=== PATIENT | male | born 1955 | race Caucasian/White ===

== ENCOUNTER 2024-10-28 19:24 | Inpatient (IN) ==
[2024-10-28 20:27] LABS: Alanine Aminotransferase 23 U/L (7-52); Albumin Globulin Ratio 1.2 (0.9-2); Albumin Level 4.4 gm/dl (3.4-5.0); Alkaline Phosphatase 92 U/L (34-104); Anion Gap 8 (3-11); BUN Creatinine Ratio 22.1 (10-20); Bilirubin,Total 0.6 mg/dl (0.2-1.0); Blood Urea Nitrogen 38 mg/dl (6-23); Calcium 9.6 mg/dl (8.6-10.3); Carbon Dioxide 24 mmol/L (21-32); Chloride 105 mmol/L (98-107); D Dimer 260 ug/L FEU (0-500); Globulin 3.7 gm/dl (2.5-4.0); Glucose 164 mg/dl (70-99(Fasting)); Lipase 46 U/L (11-82); Sodium 137 mmol/L (136-145); Total Protein 8.1 gm/dl (6.0-8.3); Troponin I High Sensitivity 28.3 pg/ml (0-20)
[2024-10-28 20:33] LABS: Hematocrit (blood only) 38.5 % (42.0-52.0); Mean Corpuscular Hemoglobin 32.7 pg (25.0-34.0); Mean Corpuscular Hgb Conc 36.4 g/dL (32.0-36.0); Platelet Count 221 K/uL (130-400); RDW Standard Deviation 42.1 fL (36.4-46.3); Red Blood Count 4.28 M/uL (4.70-6.10); White Blood Count 10.31 K/ul (4.8-10.8)
[2024-10-28 20:34] LABS: Eosinophils # (auto) 0.59 K/uL (0.00-0.50); Eosinophils % (auto) 5.7 %; Immature Granulocytes # (auto) 0.04 K/uL (0.01-0.20); Immature Granulocytes % (auto) 0.4 %; Lymphocytes # (auto) 2.48 K/uL (1.20-3.40); Lymphocytes % (auto) 24.1 %; Monocytes # (auto) 0.92 K/uL (0.11-0.59); Monocytes % (auto) 8.9 %; Neutrophils # (auto) 6.18 K/uL (1.40-6.50); Neutrophils % (auto) 59.9 %
[2024-10-28 20:57] LABS: Influenza A virus by PCR Negative (Neg); Influenza B virus by PCR Negative (Neg); RSV by PCR Negative (Neg); SARS CoV2 RNA(COVID-19) Ceph NEGATIVE (Negative)
[2024-10-28 21:07] LABS: Appearance Urine Clear (Clear); Bacteria Urine Automated None Seen (None Seen); Bilirubin Urine Negative (Negative); Blood Urine Negative (Negative); Cast Urine Automated 0-2 /lpf (0-2); Color Urine Yellow; Epithelial Cell Urine Auto 0-2 /hpf (0-2); Glucose Urine UA 1+ (Negative); Ketones Urine Negative (Negative); Leukocyte Esterase Urine Negative (Negative); Nitrite Urine Negative (Negative); Protein Urine Trace (Negative); RBC Urine Automated 0-2 /hpf (0-2); Specific Gravity Urine 1.021 (1.000-1.030); Urobilinogen Urine Negative (Negative); WBC Urine Automated 0-5 /hpf (0-5)
[2024-10-28 21:55] LABS: Troponin I High Sensitivity 30.9 pg/ml (0-20)
--- NOTE | 2024-10-28 21:59 | XRay Report ---
Exam(s): XR CXR 1 VIEW EXAM: XR Chest, 1 View CLINICAL HISTORY: Chest pain, nonspecific. TECHNIQUE: Frontal view of the chest. COMPARISON: No relevant prior studies available. FINDINGS: Lungs: Hypoventilation with bilateral basilar atelectasis/vascular crowding. No CHF. Pleural space: No pleural effusion. No pneumothorax. Heart: No cardiomegaly. Cardiac loop recorder Mediastinum: Unremarkable. Normal mediastinal contour. Bones/joints: Unremarkable. No acute fracture. IMPRESSION: Hypoventilation with atelectasis. No definite CHF. Electronically signed by: Aldo Garcia M.D. 10/28/24 21:58 PM
[2024-10-28] MEDS: FUROSEMIDE 40 MG/4 ML VIAL IV ONE (22:19)
[2024-10-28] MEDS: ALBUT/IPRATROP 3MG/0.5MG NEB 3 ML VIAL NEB STA (22:22)
--- NOTE | 2024-10-28 22:50 | History & Physical Report ---
Date of Service October 28, 2024 Assessment & Plan (1) SOB (shortness of breath): Plan: 68-year-old male with past med history significant for hypertension, sleep apnea, CAD status post multiple stents as per patient, congestive heart failure, history of CVA, diabetes, hyperlipidemia, hypertension, chronic kidney disease, hypothyroidism, cataracts, comes from longterm with shortness of breath. Patient says since last 2 to 3 weeks is having cough bringing up whitish to yellowish phlegm and progressively getting shortness of breath . Currently walking short distance making him short of breath. No orthopnea. But in the nighttime he gets up gasping for breath. Complains of some chest soreness probably from his coughing. He feels his lungs are hurting. He thinks he is coughing up fluid. Appetite is okay. Sometimes when he drinks liquids he is coughing more. But swallowing solid food okay. Denies any headache. Sometimes feeling dizzy. Vision is not great in right eye because of cataracts. Currently no runny nose. Has some sore throat. Denies fevers. Currently no nausea. No abdominal pain. Constipated. Denies any blood in the stools or black stools. Micturating okay. Hemodynamics are okay. Patient says he is mostly wheelchair-bound. Shortness of breath Possible acute CHF D-dimer negative BNP [address] chest Received IV Lasix 40 mg in the ER Will continue IV Lasix 40 mg twice daily Daily weights and I's and O's Telemetry Echo Cardiac consult in a.m. Mild elevation troponin Mostly demand ischemia Will follow serial enzymes and echo History of CAD status post stents as per patient Continue aspirin, Brilinta, statin and beta-ekta and Imdur History of CHF as per records On Bumex which will be held while getting IV Lasix Will follow echo History of CVA On aspirin and Brilinta and statin Hypertension On Coreg, Imdur, lisinopril and diuretics Will monitor Hyperlipidemia On statin CKD We do not have baseline creatinine Presents with creatinine of 1.7 Will follow labs Diabetes Sliding scale Will monitor Follow HbA1c levels Hypothyroidism On Synthyroid DVT prophylaxis Heparin subcu Disposition Telemetry Full code History of Present Illness Chief Complaint: Shortness of breath Primary Care Provider: CORINE Singh 68-year-old male with past med history significant for hypertension, sleep apnea, CAD status post multiple stents as per patient, congestive heart failure, history of CVA, diabetes, hyperlipidemia, hypertension, chronic kidney disease, hypothyroidism, cataracts, comes from longterm with shortness of breath. Patient says since last 2 to 3 weeks is having cough bringing up whitish to yellowish phlegm and progressively getting shortness of breath . Currently walking short distance making him short of breath. No orthopnea. But in the nighttime he gets up gasping for breath. Complains of some chest soreness probably from his coughing. He feels his lungs are hurting. He thinks he is coughing up fluid. Appetite is okay. Sometimes when he drinks liquids he is coughing more. But swallowing solid food okay. Denies any headache. Sometimes feeling dizzy. Vision is not great in right eye because of cataracts. Currently no runny nose. Has some sore throat. Denies fevers. Currently no nausea. No abdominal pain. Constipated. Denies any blood in the stools or black stools. Micturating okay. Hemodynamics are okay. Patient says he is mostly wheelchair-bound. Past medical history. As mentioned above Past surgical history. Cardiac cath. Hernia repair. Social history. Denies smoking. Denies alcohol use. Denies drug use. Family history. Father had CABG. Allergies Allergy/AdvReac Type Severity Reaction Status Date / Time No Known Allergies Allergy Unverified 10/29/24 00:27 Home Medications Medication Instructions Recorded Confirmed Type aspirin 81 mg tablet,delayed 81 mg PO DAILY 10/28/24 10/28/24 History release atorvastatin 80 mg tablet 80 mg PO DAILY 10/28/24 10/28/24 History bumetanide 1 mg tablet 1 mg PO BID 10/28/24 10/28/24 History carvedilol 3.125 mg tablet (Coreg) 3.125 mg PO BID 10/28/24 10/28/24 History cholecalciferol (vitamin D3) 25 25 mcg PO DAILY 10/28/24 10/28/24 History mcg (1,000 unit) capsule (Vitamin D3) insulin regular human 100 unit/mL 1 sliding scale dose subcut 10/28/24 10/28/24 History (3 mL) subcutaneous pen (Novolin R USEASDIRECTD FlexPen) levothyroxine 100 mcg tablet 100 mcg PO DAILY 10/28/24 10/28/24 History lisinopril 30 mg tablet 30 mg PO DAILY 10/28/24 10/28/24 History ticagrelor 90 mg tablet (Brilinta) 90 mg PO BID 10/28/24 10/28/24 History isosorbide mononitrate 30 mg 15 mg PO DAILY 10/29/24 10/29/24 History tablet,extended release 24 hr Past Med/Surg History Problem List (Updated 10/28/24 @ 23:36 by Giovanna Pruett PA-C) Atypical chest pain (Acute) SOB (shortness of breath) Social History Smoking Status: Never smoker Second Hand Exposure: No; Do You Dip or Chew Tobacco: No; Hx Alcohol Use: No Hx Substance Use: No Preferred Language: Thai Communication Ability: Effective 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 ENT- oropharynx clear Neck- supple, no JVD. Lungs- clear to auscultation mild bibasilar crackles, no wheezing Heart- regular rate and rhythm; no murmur, no gallop. Abdomen- normal bowel sounds, soft, nontender, no distension Extremities- trace pretibial edema present, no erythema seen Neuro- alert, oriented PERRL, no facial palsy; no dysarthria; moves extremities Results & Data Results & Data Vital Signs (Past 12 Hours) Vital Signs Temp Pulse Pulse Resp BP BP Pulse Ox 10/28/24 20:52 68 10/28/24 20:39 56 L 20 97 10/28/24 20:39 56 L 19 177/106 H 97 10/28/24 20:39 97 10/28/24 19:30 37.2 C 60 19 179/92 H 96 O2 Del Method 10/28/24 20:52 10/28/24 20:39 Room Air 10/28/24 20:39 Room Air 10/28/24 20:39 Room Air 10/28/24 19:30 Room Air Diagnostic Findings Laboratory Results WBC 10.31 K/ul (4.8-10.8) 10/28/24 19:48 RBC 4.28 M/uL (4.70-6.10) L 10/28/24 19:48 Hgb 14.0 g/dl (14.0-18.0) 10/28/24 19:48 Hct 38.5 % (42.0-52.0) L 10/28/24 19:48 MCV 90.0 fL (80.0-100.0) 10/28/24 19:48 MCH 32.7 pg (25.0-34.0) 10/28/24 19:48 MCHC 36.4 g/dL (32.0-36.0) H 10/28/24 19:48 RDW Std Deviation 42.1 fL (36.4-46.3) 10/28/24 19:48 RDW Coeff of Carisa 13.0 % (11.5-14.5) 10/28/24 19:48 Plt Count 221 K/uL (130-400) 10/28/24 19:48 MPV 11.0 fL (9.4-12.4) 10/28/24 19:48 Immature Gran % (Auto) 0.4 % 10/28/24 19:48 Neut % (Auto) 59.9 % 10/28/24 19:48 Lymph % (Auto) 24.1 % 10/28/24 19:48 [place] % (Auto) 8.9 % 10/28/24 19:48 Eos % (Auto) 5.7 % 10/28/24 19:48 Baso % (Auto) 1.0 % 10/28/24 19:48 Neut # (Auto) 6.18 K/uL (1.40-6.50) 10/28/24 19:48 Lymph # (Auto) 2.48 K/uL (1.20-3.40) 10/28/24 19:48 [place] # (Auto) 0.92 K/uL (0.11-0.59) H 10/28/24 19:48 Eos # (Auto) 0.59 K/uL (0.00-0.50) H 10/28/24 19:48 Baso # (Auto) 0.10 K/uL (0.00-0.20) 10/28/24 19:48 Immature Gran # (Auto) 0.04 K/uL (0.01-0.20) 10/28/24 19:48 D-Dimer 260 ug/L FEU (0-500) 10/28/24 19:48 Sodium 137 mmol/L (136-145) 10/28/24 19:48 Potassium 4.0 mmol/L (3.5-5.1) 10/28/24 21:00 Chloride 105 mmol/L (98-107) 10/28/24 19:48 Carbon Dioxide 24 mmol/L (21-32) 10/28/24 19:48 Anion Gap 8 (3-11) 10/28/24 19:48 BUN 38 mg/dl (6-23) H 10/28/24 19:48 Creatinine 1.72 mg/dl (0.6-1.4) H 10/28/24 19:48 Est Cr Clr Drug Dosing Not Reportable 10/28/24 19:48 eGFR 42.76 10/28/24 19:48 BUN/Creatinine Ratio 22.1 (10-20) H 10/28/24 19:48 Glucose 164 mg/dl (70-99(Fasting)) H 10/28/24 19:48 Calcium 9.6 mg/dl (8.6-10.3) 10/28/24 19:48 Total Bilirubin 0.6 mg/dl (0.2-1.0) 10/28/24 19:48 AST 18 U/L (13-39) 10/28/24 21:00 ALT 23 U/L (7-52) 10/28/24 19:48 Alkaline Phosphatase 92 U/L (34-104) 10/28/24 19:48 Troponin I High Sens 30.9 pg/ml (0-20) H 10/28/24 21:00 B-Natriuretic Peptide 102 pg/ml (0-100) H 10/28/24 19:48 Total Protein 8.1 gm/dl (6.0-8.3) 10/28/24 19:48 Albumin 4.4 gm/dl (3.4-5.0) 10/28/24 19:48 Globulin 3.7 gm/dl (2.5-4.0) 10/28/24 19:48 Albumin/Globulin Ratio 1.2 (0.9-2) 10/28/24 19:48 Lipase 46 U/L (11-82) 10/28/24 19:48 Urine Color Yellow 10/28/24 20:43 Urine Appearance Clear (Clear) 10/28/24 20:43 Urine pH 5.0 (4.5-7.5) 10/28/24 20:43 Ur Specific [place] 1.021 (1.000-1.030) 10/28/24 20:43 Urine Protein Trace (Negative) H 10/28/24 20:43 Urine Glucose (UA) 1+ (Negative) H 10/28/24 20:43 Urine Ketones Negative (Negative) 10/28/24 20:43 Urine Blood Negative (Negative) 10/28/24 20:43 Urine Nitrite Negative (Negative) 10/28/24 20:43 Urine Bilirubin Negative (Negative) 10/28/24 20:43 Urine Urobilinogen Negative (Negative) 10/28/24 20:43 Ur Leukocyte Esterase Negative (Negative) 10/28/24 20:43 Urine WBC (Auto) 0-5 /hpf (0-5) 10/28/24 20:43 Urine RBC (Auto) 0-2 /hpf (0-2) 10/28/24 20:43 U Hyaline Cast (Auto) 0-2 /lpf (0-2) 10/28/24 20:43 U Epithel Cells (Auto) 0-2 /hpf (0-2) 10/28/24 20:43 Urine Bacteria (Auto) None Seen (None Seen) 10/28/24 20:43 SARS-CoV-2 (PCR) NEGATIVE (Negative) 10/28/24 Unknown Influenza Type A (PCR) Negative (Neg) 10/28/24 Unknown Influenza Type B (PCR) Negative (Neg) 10/28/24 Unknown RSV (RT-PCR) Negative (Neg) 10/28/24 Unknown Impressions Chest X-Ray 10/28/24 19:35 Exam(s): XR CXR 1 VIEW EXAM: XR Chest, 1 View CLINICAL HISTORY: Chest pain, nonspecific. TECHNIQUE: Frontal view of the chest. COMPARISON: No relevant prior studies available. FINDINGS: Lungs: Hypoventilation with bilateral basilar atelectasis/vascular crowding. No CHF. Pleural space: No pleural effusion. No pneumothorax. Heart: No cardiomegaly. Cardiac loop recorder Mediastinum: Unremarkable. Normal mediastinal contour. Bones/joints: Unremarkable. No acute fracture. IMPRESSION: Hypoventilation with atelectasis. No definite CHF. Electronically signed by: Aldo Garcia M.D. 10/28/24 21:58 PM ECG Additional Comments: ECG. Normal sinus rhythm with sinus arrhythmia rate of 61. No acute ST changes seen. Code Status & VTE Plan VTE Prophylaxis Plan VTE Prophylaxis will be ordered: Yes
--- NOTE | 2024-10-28 23:36 | Emergency Department Note ---
History of Present Illness General Chief complaint: Chest Pain Stated complaint: LUNGS FILLING WITH LIQUID Time Seen by Provider: 10/28/24 21:33 History of Present Illness Maximum Pain Intensity: 4 This 68-year-old present with coronary artery disease presents ER complaining of chest pain and shortness of breath that has gotten progressively worse. No known history of heart failure. Patient denies fever, chills, flulike illness, leg pain or swelling. Home Medications Medication Instructions Recorded Confirmed Type Imdur 15 mg PO DAILY 10/28/24 10/28/24 History aspirin 81 mg tablet,delayed 81 mg PO DAILY 10/28/24 10/28/24 History release atorvastatin 80 mg tablet 80 mg PO DAILY 10/28/24 10/28/24 History bumetanide 1 mg tablet 1 mg PO BID 10/28/24 10/28/24 History carvedilol 3.125 mg tablet (Coreg) 3.125 mg PO BID 10/28/24 10/28/24 History cholecalciferol (vitamin D3) 25 25 mcg PO DAILY 10/28/24 10/28/24 History mcg (1,000 unit) capsule (Vitamin D3) insulin regular human 100 unit/mL 1 sliding scale dose subcut 10/28/24 10/28/24 History (3 mL) subcutaneous pen (Novolin R USEASDIRECTD FlexPen) levothyroxine 100 mcg tablet 100 mcg PO DAILY 10/28/24 10/28/24 History lisinopril 30 mg tablet 30 mg PO DAILY 10/28/24 10/28/24 History ticagrelor 90 mg tablet (Brilinta) 90 mg PO BID 10/28/24 10/28/24 History Past Med/Surg History Problem List (Updated 10/28/24 @ 23:36 by Giovanna Pruett PA-C) Atypical chest pain (Acute) SOB (shortness of breath) Social History Smoking Status: Never smoker Feels Safe at Home: Yes Review of Systems A total of 10 systems reviewed and were otherwise negative Physical Exam Vital Signs Vital Signs - 24 hr 10/28/24 19:30 10/28/24 20:39 10/28/24 20:39 Temperature 37.2 C Temperature Source Temporal Artery Scan Pulse Rate 60 Pulse Rate [Apical] 56 L Pulse Rate from SpO2 Sensor Pulse Rhythm Regular Respiratory Rate 19 19 Respiratory Effort / Characteristics Non-Labored Non-Labored Spontaneous Respiratory Depth Normal Normal Respiratory Pattern Regular Blood Pressure 179/92 H Blood Pressure [Right Arm] 177/106 H Blood Pressure Mean 121 Blood Pressure Mean [Right Arm] 129 Pulse Oximetry 96 97 97 Oxygen Delivery Method Room Air Room Air Room Air Sepsis Recent Fever Within 48 Hours No Sepsis New/Unexplained Change in Mental Status N/A Sepsis Action Taken by Nursing No Action Required 10/28/24 20:39 10/28/24 20:52 10/28/24 21:03 Temperature Temperature Source Pulse Rate 56 L 68 55 L Pulse Rate [Apical] Pulse Rate from SpO2 Sensor 54 L Pulse Rhythm Respiratory Rate 20 16 Respiratory Effort / Characteristics Respiratory Depth Respiratory Pattern Blood Pressure 193/95 H Blood Pressure [Right Arm] Blood Pressure Mean 127 Blood Pressure Mean [Right Arm] Pulse Oximetry 97 98 Oxygen Delivery Method Room Air Sepsis Recent Fever Within 48 Hours Sepsis New/Unexplained Change in Mental Status Sepsis Action Taken by Nursing 10/28/24 22:00 10/28/24 22:15 10/28/24 22:33 Temperature Temperature Source Pulse Rate 53 L 50 L Pulse Rate [Apical] Pulse Rate from SpO2 Sensor 55 L 51 L Pulse Rhythm Respiratory Rate 19 19 Respiratory Effort / Characteristics Respiratory Depth Respiratory Pattern Blood Pressure 169/97 H Blood Pressure [Right Arm] Blood Pressure Mean 135 Blood Pressure Mean [Right Arm] Pulse Oximetry 97 100 Oxygen Delivery Method Sepsis Recent Fever Within 48 Hours Sepsis New/Unexplained Change in Mental Status Sepsis Action Taken by Nursing VITALS: Vitals are noted on the nurse's note and reviewed by myself. Vital signs stable. GENERAL: White male, in no acute distress, nondiaphoretic, well-developed well- nourished. SKIN: Capillary reflex less than 2 seconds. HEENT: Normocephalic. PERRLA. EOMI. Nares patent. Mucous membranes moist. Neck is supple without nuchal rigidity. HEART: Regular rate and rhythm LUNGS: Bibasilar rales. No retractions or accessory muscle use. ABDOMEN: Positive bowel sounds x 4. Normal tympanic percussion. Soft, nontender, without masses or organomegaly. Ordaz sign negative. No guarding or rebound tenderness. no CVA tenderness MUSCULOSKELETAL: No gross musculoskeletal defects. NEURO: Patient was alert and oriented to person place and time. No focal neurological deficits. Course Administered Medications Discontinued Medications Albuterol (Albut/Ipratrop 3mg/0.5mg Neb 3 Ml Vial) 3 ml NEB NOW STA; Protocol Stop: 10/28/24 21:49 Last Admin: 10/28/24 22:22 Dose: 3 ml Documented By: CEF Furosemide (Furosemide 40 Mg/4 Ml Vial) 40 mg IV ONE ONE Stop: 10/28/24 21:49 Last Admin: 10/28/24 22:19 Dose: 40 mg Documented By: CEF Medical Decision Making Medical Records Attestation: I reviewed the patient's medical records. Home Medications Current Medication List: was personally reviewed by me Laboratory Data Attestation: I reviewed the patient's lab results. 10/28/24 19:48 10/28/24 21:00 Lab Results 10/28/24 10/28/24 10/28/24 Range/Units 19:48 20:43 21:00 WBC 10.31 (4.8-10.8) K/ul RBC 4.28 L (4.70-6.10) M/uL Hgb 14.0 (14.0-18.0) g/dl Hct 38.5 L (42.0-52.0) % MCV 90.0 (80.0-100.0) fL MCH 32.7 (25.0-34.0) pg MCHC 36.4 H (32.0-36.0) g/dL RDW Std Deviation 42.1 (36.4-46.3) fL RDW Coeff of Carisa 13.0 (11.5-14.5) % Plt Count 221 (130-400) K/uL MPV 11.0 (9.4-12.4) fL Immature Gran % (Auto) 0.4 % Neut % (Auto) 59.9 % Lymph % (Auto) 24.1 % [place]ador % (Auto) 8.9 % Eos % (Auto) 5.7 % Baso % (Auto) 1.0 % Neut # (Auto) 6.18 (1.40-6.50) K/uL Lymph # (Auto) 2.48 (1.20-3.40) K/uL [place] # (Auto) 0.92 H (0.11-0.59) K/uL Eos # (Auto) 0.59 H (0.00-0.50) K/uL Baso # (Auto) 0.10 (0.00-0.20) K/uL Immature Gran # (Auto) 0.04 (0.01-0.20) K/uL D-Dimer 260 (0-500) ug/L FEU Sodium 137 (136-145) mmol/L Potassium TNP 4.0 Chloride 105 (98-107) mmol/L Carbon Dioxide 24 (21-32) mmol/L Anion Gap 8 (3-11) BUN 38 H (6-23) mg/dl Creatinine 1.72 H (0.6-1.4) mg/dl Est Cr Clr Drug Dosing Not Reportable eGFR 42.76 BUN/Creatinine Ratio 22.1 H (10-20) Glucose 164 H (70-99(Fasting)) mg/dl Calcium 9.6 (8.6-10.3) mg/dl Total Bilirubin 0.6 (0.2-1.0) mg/dl AST TNP 18 ALT 23 (7-52) U/L Alkaline Phosphatase 92 (34-104) U/L Troponin I High Sens 28.3 H 30.9 H (0-20) pg/ml B-Natriuretic Peptide 102 H (0-100) pg/ml Total Protein 8.1 (6.0-8.3) gm/dl Albumin 4.4 (3.4-5.0) gm/dl Globulin 3.7 (2.5-4.0) gm/dl Albumin/Globulin Ratio 1.2 (0.9-2) Lipase 46 (11-82) U/L Urine Color Yellow Urine Appearance Clear (Clear) Urine pH 5.0 (4.5-7.5) Ur Specific O'Brien 1.021 (1.000-1.030) Urine Protein Trace H (Negative) Urine Glucose (UA) 1+ H (Negative) Urine Ketones Negative (Negative) Urine Blood Negative (Negative) Urine Nitrite Negative (Negative) Urine Bilirubin Negative (Negative) Urine Urobilinogen Negative (Negative) Ur Leukocyte Esterase Negative (Negative) Urine WBC (Auto) 0-5 (0-5) /hpf Urine RBC (Auto) 0-2 (0-2) /hpf U Hyaline Cast (Auto) 0-2 (0-2) /lpf U Epithel Cells (Auto) 0-2 (0-2) /hpf Urine Bacteria (Auto) None Seen (None Seen) SARS-CoV-2 (PCR) (Negative) Influenza Type A (PCR) (Neg) Influenza Type B (PCR) (Neg) RSV (RT-PCR) (Neg) 10/28/24 Range/Units Unknown WBC (4.8-10.8) K/ul RBC (4.70-6.10) M/uL Hgb (14.0-18.0) g/dl Hct (42.0-52.0) % MCV (80.0-100.0) fL MCH (25.0-34.0) pg MCHC (32.0-36.0) g/dL RDW Std Deviation (36.4-46.3) fL RDW Coeff of Carisa (11.5-14.5) % Plt Count (130-400) K/uL MPV (9.4-12.4) fL Immature Gran % (Auto) % Neut % (Auto) % Lymph % (Auto) % [place] % (Auto) % Eos % (Auto) % Baso % (Auto) % Neut # (Auto) (1.40-6.50) K/uL Lymph # (Auto) (1.20-3.40) K/uL [place] # (Auto) (0.11-0.59) K/uL Eos # (Auto) (0.00-0.50) K/uL Baso # (Auto) (0.00-0.20) K/uL Immature Gran # (Auto) (0.01-0.20) K/uL D-Dimer (0-500) ug/L FEU Sodium (136-145) mmol/L Potassium Chloride (98-107) mmol/L Carbon Dioxide (21-32) mmol/L Anion Gap (3-11) BUN (6-23) mg/dl Creatinine (0.6-1.4) mg/dl Est Cr Clr Drug Dosing eGFR BUN/Creatinine Ratio (10-20) Glucose (70-99(Fasting)) mg/dl Calcium (8.6-10.3) mg/dl Total Bilirubin (0.2-1.0) mg/dl AST ALT (7-52) U/L Alkaline Phosphatase (34-104) U/L Troponin I High Sens (0-20) pg/ml B-Natriuretic Peptide (0-100) pg/ml Total Protein (6.0-8.3) gm/dl Albumin (3.4-5.0) gm/dl Globulin (2.5-4.0) gm/dl Albumin/Globulin Ratio (0.9-2) Lipase (11-82) U/L Urine Color Urine Appearance (Clear) Urine pH (4.5-7.5) Ur Specific O'Brien (1.000-1.030) Urine Protein (Negative) Urine Glucose (UA) (Negative) Urine Ketones (Negative) Urine Blood (Negative) Urine Nitrite (Negative) Urine Bilirubin (Negative) Urine Urobilinogen (Negative) Ur Leukocyte Esterase (Negative) Urine WBC (Auto) (0-5) /hpf Urine RBC (Auto) (0-2) /hpf U Hyaline Cast (Auto) (0-2) /lpf U Epithel Cells (Auto) (0-2) /hpf Urine Bacteria (Auto) (None Seen) SARS-CoV-2 (PCR) NEGATIVE (Negative) Influenza Type A (PCR) Negative (Neg) Influenza Type B (PCR) Negative (Neg) RSV (RT-PCR) Negative (Neg) Imaging Data Attestation: I personally reviewed and interpreted this imaging study as follows: Radiologist's Impression: Chest X-Ray 10/28/24 19:35 Exam(s): XR CXR 1 VIEW EXAM: XR Chest, 1 View CLINICAL HISTORY: Chest pain, nonspecific. TECHNIQUE: Frontal view of the chest. COMPARISON: No relevant prior studies available. FINDINGS: Lungs: Hypoventilation with bilateral basilar atelectasis/vascular crowding. No CHF. Pleural space: No pleural effusion. No pneumothorax. Heart: No cardiomegaly. Cardiac loop recorder Mediastinum: Unremarkable. Normal mediastinal contour. Bones/joints: Unremarkable. No acute fracture. IMPRESSION: Hypoventilation with atelectasis. No definite CHF. Electronically signed by: Aldo Garcia M.D. 10/28/24 21:58 PM [facility] Narrative Prior records/ancillary studies reviewed. Triage Nursing notes reviewed. Additional history obtained from nursing. The patient's history was concerning for chest pain. Differential diagnosis: Etiologies such as cardiac ischemia, aortic dissection, pulmonary embolism, pneumonia, pneumothorax, musculoskeletal, infections, pericarditis, myocarditis, esophageal rupture, gastrointestinal, as well as others were entertained. Physical examination: As above. ER treatment provided: An order was placed for continuous cardiac monitoring. The monitor shows a rate of 50-100 with a sinus rhythm per my interpretation. Lasix, nebulizer On reassessment the patient felt better. Diagnostic interpretation by me: The electrocardiogram was negative for pathologic change. Ordered for chest pain EKG: Poor baseline, normal sinus, no acute ST-T wave changes, rate of 61. Impression normal sinus rhythm poor baseline independent interpreted by myself I think arrhythmia is unlikely. EKG shows normal sinus rhythm with no interval abnormalities such as QT prolongation or WPW. There are no findings to suggest Brugada syndrome. Cardiac monitoring in the emergency department reveals no tachycardic or bradycardic dysrhythmia. Hypertrophic cardiomyopathy was considered but there are no clear historical elements pointing toward this. EKG is not suggestive. The QRS voltage is not extremely large and there are no suggestive Q waves. The labs Independently Interpreted by myself revealed elevated troponin and repeat was ordered and slightly higher. Imaging studies: Chest x-ray was reviewed and read by radiology HEART SCORE: Hx: high/mod/low suspicion: 1 ECG: ST depression/nonspecific changes/normal: 0 Age: Greater than 65/45-64/less than 45: 2 Risk factors: (Hypertension, hyperlipidemia, diabetes, coronary disease, tobacco use, cocaine use): 2 Troponin: Greater than 2 times normal limits/1-2 times normal limits/normal: 1 Total: 6 Consultation: A consultation was placed with the hospitalist. The case was discussed and diagnostics were reviewed. The patient was evaluated in the ER for further treatment. Exam and history seem consistent with chest pain with concerns for cardiac in etiology with concerns for heart failure. Patient was medicated as above. Medicine was consulted and the case is discussed. He will be admitted to the medical service. Patient is agreeable. By the evaluation outlined above emergent etiologies such as aortic dissection, pulmonary embolism, pneumonia, pneumothorax, infections, pericarditis, myocarditis, gastrointestinal, as well as others were deemed relatively unlikely. The pt informed about the findings as listed above. All questions were answered and pleased with the treatment. The chart was completed utilizing [employer] Speech voice recognition software. Grammatical errors, random word insertions, pronoun errors, and incomplete sentences are an occassional consequence of this system due to software limitations, ambient noise, and hardware issues. Any formal questions or concerns about the content, text, or information contained within the body of this dictation should be directly addressed to the physician communication assistant for clarification. Impression & Plan Atypical chest pain Discharge Plan Visit Data Chief Complaint: Chest Pain Stated Complaint: LUNGS FILLING WITH LIQUID ED Provider: Zach Cordova ED Midlevel Provider: Giovanna Pruett Discharge Problem: Atypical chest pain Patient Disposition: Being Evaluated by Hospitalist Condition: Good Forms Stand Alone Forms: [facility] Prescriptions Prescriptions: No Action atorvastatin 80 mg Tablet 80 mg PO DAILY aspirin 81 mg Tablet,Delayed Release (Dr/Ec) 81 mg PO DAILY carvedilol [Coreg] 3.125 mg Tablet 3.125 mg PO BID Rx Instructions: must administer with a meal/food levothyroxine 100 mcg Tablet 100 mcg PO DAILY lisinopril 30 mg Tablet 30 mg PO DAILY bumetanide [Bumex] 1 mg Tablet 1 mg PO BID cholecalciferol (vitamin D3) [Vitamin D3] 25 mcg (1,000 unit) Capsule 25 mcg PO DAILY Novolin R FlexPen 100 unit/mL (3 mL) Insulin Pen 1 sliding scale dose SUBCUT USEASDIRECTD Rx Instructions: sliding scale Brilinta 90 mg Tablet 90 mg PO BID Imdur 30 mg 15 mg PO DAILY Referrals Referrals: Samantha POOL [Primary Care Provider] -
[2024-10-29] MEDS ORDERED: GLUCAGON FOR INJ 1 MG VIAL SQ PRN (00:51)
[2024-10-29] MEDS ORDERED: LEVALBUTEROL 1.25 MG/3 ML NEB NEB PRN (00:51)
[2024-10-29] MEDS ORDERED: CARBOHYDRATES FOR HYPOGLYCEMIA PO PRN (00:51)
[2024-10-29] MEDS ORDERED: POLYETHYLENE (MIRALAX) 17 GM PACK PO PRN (00:51)
[2024-10-29] MEDS ORDERED: DEXTROSE 50% 50 ML SYRINGE IV PRN (00:51)
[2024-10-29] MEDS ORDERED: GLUCOSE 40% GEL 15 GM TUBE PO PRN (00:51)
[2024-10-29] MEDS ORDERED: GLUCOSE 10 TAB/TUBE PO PRN (00:51)
[2024-10-29] MEDS ORDERED: NITROGLYCERIN SL 0.4 MG/TAB TAB SL PRN (00:51)
[2024-10-29] MEDS ORDERED: PNEUMOCOCCAL VACCINE (PCV20) 20-VAL CONJ-DIP CRM/PF 0.5 ML SYR IM ONE (01:15)
[2024-10-29] MEDS ORDERED: INFLUENZA VACC TS2024-25(65y+)/PF (IIV3) 0.5mL Syr IM ONE (01:15)
[2024-10-29] MEDS: carvediloL 3.125 MG TAB PO SCH (01:21)
[2024-10-29] MEDS: TICAGRELOR 90 MG TAB PO SCH (01:34)
--- NOTE | 2024-10-29 03:55 | CT Scan Report ---
EXAM: CT chest diagnostic wo con CLINICAL HISTORY: sob, chf/pneumonia TECHNIQUE: Contiguous axial images were obtained from the neck base through the upper abdomen without contrast. In addition, sagittal and coronal reconstructions were performed to potentially increase the sensitivity for the detection of disease. CT scan was performed according to ALARA (as low as reasonable achievable). COMPARISON: None. FINDINGS: The lungs are clear, with no focal areas of consolidation. No pulmonary nodules are seen. The central airways are patent. There are no pleural effusions. No pneumothorax is seen. Evaluation of the mediastinum and francie is limited due to the lack of intravenous contrast. No axillary or mediastinal adenopathy is identified. The thyroid is unremarkable. The heart, aorta, and pulmonary arteries are of normal size and configuration. There are coronary artery and aortic atherosclerotic calcifications. No pericardial effusion is identified. Imaged portions of the upper abdomen are unremarkable. No aggressive appearing osseous lesions are identified. IMPRESSION: 1. No significant abnormality detected Electronically signed by Miles Cruz 10-29-2024 03:54 AM
[2024-10-29] MEDS: INSULIN ASPART PER UNIT CHARGE SC SCH (05:51)
[2024-10-29] MEDS: LEVOTHYROXINE SODIUM 100 MCG TABLET PO SCH (05:56)
[2024-10-29] MEDS: HEPARIN SOD 5,000 UNIT/0.5 ML VIAL SQ SCH (05:56)
[2024-10-29 05:58] LABS: Basophils # (auto) 0.09 K/uL (0.00-0.20); Basophils % (auto) 0.8 %; Eosinophils # (auto) 0.54 K/uL (0.00-0.50); Eosinophils % (auto) 4.8 %; Hematocrit (blood only) 40.2 % (42.0-52.0); Hemoglobin 14.5 g/dl (14.0-18.0); Immature Granulocytes # (auto) 0.05 K/uL (0.01-0.20); Immature Granulocytes % (auto) 0.4 %; Lymphocytes # (auto) 2.61 K/uL (1.20-3.40); Lymphocytes % (auto) 23.2 %; Mean Corpuscular Hemoglobin 32.4 pg (25.0-34.0); Mean Corpuscular Hgb Conc 36.1 g/dL (32.0-36.0); Mean Corpuscular Volume 89.9 fL (80.0-100.0); Mean Platelet Volume 10.7 fL (9.4-12.4); Monocytes # (auto) 0.91 K/uL (0.11-0.59); Monocytes % (auto) 8.1 %; Neutrophils # (auto) 7.03 K/uL (1.40-6.50); Neutrophils % (auto) 62.7 %; Platelet Count 231 K/uL (130-400); RDW Standard Deviation 42.5 fL (36.4-46.3); Red Blood Count 4.47 M/uL (4.70-6.10); White Blood Count 11.23 K/ul (4.8-10.8)
[2024-10-29 06:08] LABS: BUN Creatinine Ratio 20.9 (10-20); Calcium 9.4 mg/dl (8.6-10.3); Creatinine Clr Calc Pharmacy 44.4 ml/min; Magnesium 2.1 mg/dl (1.7-2.4); Potassium 3.7 mmol/L (3.5-5.1)
[2024-10-29 06:16] LABS: Troponin I High Sensitivity 32.2 pg/ml (0-20)
[2024-10-29] MEDS: ISOSORBIDE MONO EXTENDED REL 30 MG TABCR PO SCH (08:11)
[2024-10-29] MEDS: CHOLECALCIFEROL 25 MCG (1000 UNITS) TAB PO SCH (08:11)
[2024-10-29] MEDS: ATORVASTATIN 40 MG TAB PO SCH (08:12)
[2024-10-29] MEDS: FUROSEMIDE 40 MG/4 ML VIAL IV SCH (08:12)
[2024-10-29] MEDS: ASPIRIN 81 MG ECTAB PO SCH (08:12)
[2024-10-29] MEDS: lisinopril 10 MG TAB PO SCH (08:12)
[2024-10-29 09:29] LABS: Estimated Average Glucose 134 mg/dl; Hemoglobin A1C 6.3 % (4.5-5.6)
--- NOTE | 2024-10-29 10:39 | Hospitalist Progress Note ---
Date of Service October 29, 2024 Assessment & Plan (1) SOB (shortness of breath): Plan: 68-year-old male with past med history significant for hypertension, sleep apnea, CAD status post multiple stents as per patient, congestive heart failure, history of CVA, diabetes, hyperlipidemia, hypertension, chronic kidney disease, hypothyroidism, cataracts, comes from assisted with shortness of breath. Patient says since last 2 to 3 weeks is having cough bringing up whitish to yellowish phlegm and progressively getting shortness of breath . D-dimer negative BNP [address] chest did not show any acute abnormalities. Based on history, patient may have Upper Respiratory Infection Will give antitussive and supportive care Will get full resp panel Prednisone 40mg daily x 5 days Mildly elevated troponin likely due to demand ischemia Cannot rule out ACS However, in view of his significant cardiac history and we do not have his records, will appreciate Cardiology eval Will follow up TTE Discussed with Cards. Plan for nuclear stress tomorrow. NPO PMN Patient does not seem volume overloaded on exam. He was on bumex at the [facility]. Will continue the iv lasix for now until full Cardiology evaluation History of CAD status post stents as per patient Continue aspirin, Brilinta, statin and beta-ekta and Imdur Hypertension History of CHF as per records Continue lisinopril, coreg Diuretics as above History of CVA On aspirin and Brilinta and statin Hyperlipidemia On statin Possible CKD We do not have baseline creatinine Presents with creatinine of 1.7 Cr is 1.7 this AM Diabetes Sliding scale Will monitor HbA1c 6.3 Hypothyroidism On Synthyroid DVT prophylaxis Heparin subcu Disposition Telemetry Full code I spent a total of 50 minutes coordinating, documenting and providing care for this patient excluding time spent in performance of separately billed services Admission and Anticipated Discharge Date Admission Date: October 28, 2024 Subjective Patient seen and examined Reports he has been having SOB with mild activity for months. Reports he has been having productive cough for some weeks, associated with congestion, occasional rhinorrhea and chest pain. Reported some episode of epistaxis No fever, chills No leg swelling or orthopnea At baseline, he reports he gets around with wheelchair and cane due to left leg weakness from old CVA. Has h/o CAD with multiple stents. Reports last one was 2 years ago Denied smoking/alcohol or illicit drug use Denied h/o COPD/asthma Physical Exam Constitutional: + well hydrated and + obese; no acute di stress Eyes: PERRL, conjunctivae normal, anicteric sclerae ENMT: external ear and nose normal, oropharynx normal Respiratory: normal respiratory effort, lungs clear to auscultation Cardiovascular: Rate/Rhythm: regular rhythm and + bradycardic Gastrointestinal (Abdomen): normal bowel sounds, soft, nontender, no hepatosplenomegaly Musculoskeletal: No pedal edema Neurologic: PERRL, EOMI, accommodation nl, no face palsy, no dysarthria Psychiatric: A+Ox3, euthymic affect Results & Data Results & Data Vital Signs (Past 12 Hours) Vital Signs Temp Pulse Pulse Resp BP BP Pulse Ox 10/29/24 07:05 36.8 C 54 L 18 159/96 H 94 10/29/24 06:32 36.4 C L 52 L 20 126/79 96 10/29/24 03:46 51 L 22 98 10/29/24 01:38 10/29/24 01:11 74 19 94 10/29/24 01:00 55 L 10/29/24 00:55 36.9 C 54 L 20 146/86 H 97 10/29/24 00:51 10/29/24 00:29 51 L 12 134/82 95 Pulse Ox O2 Del Method O2 Del Method FiO2 10/29/24 07:05 Room Air 10/29/24 06:32 Room Air 10/29/24 03:46 10/29/24 01:38 CPAP 10/29/24 01:11 21 10/29/24 01:00 10/29/24 00:55 Room Air 10/29/24 00:51 94 Room Air 10/29/24 00:29 Laboratory Results Abnormal lab results 10/28/24 10/28/24 10/28/24 Range/Units 19:48 20:43 21:00 WBC (4.8-10.8) K/ul RBC 4.28 L (4.70-6.10) M/uL Hct 38.5 L (42.0-52.0) % MCHC 36.4 H (32.0-36.0) g/dL Neut # (Auto) (1.40-6.50) K/uL [place] # (Auto) 0.92 H (0.11-0.59) K/uL Eos # (Auto) 0.59 H (0.00-0.50) K/uL BUN 38 H (6-23) mg/dl Creatinine 1.72 H (0.6-1.4) mg/dl BUN/Creatinine Ratio 22.1 H (10-20) Glucose 164 H (70-99(Fasting)) mg/dl POC Glucose (70-99) mg/dl Hemoglobin A1c (4.5-5.6) % Troponin I High Sens 28.3 H 30.9 H (0-20) pg/ml B-Natriuretic Peptide 102 H (0-100) pg/ml Urine Protein Trace H (Negative) Urine Glucose (UA) 1+ H (Negative) 10/29/24 10/29/24 10/29/24 Range/Units 01:21 05:26 05:37 WBC 11.23 H (4.8-10.8) K/ul RBC 4.47 L (4.70-6.10) M/uL Hct 40.2 L (42.0-52.0) % MCHC 36.1 H (32.0-36.0) g/dL Neut # (Auto) 7.03 H (1.40-6.50) K/uL [place] # (Auto) 0.91 H (0.11-0.59) K/uL Eos # (Auto) 0.54 H (0.00-0.50) K/uL BUN 36 H (6-23) mg/dl Creatinine 1.72 H (0.6-1.4) mg/dl BUN/Creatinine Ratio 20.9 H (10-20) Glucose 116 H (70-99(Fasting)) mg/dl POC Glucose 111 H 133 H (70-99) mg/dl Hemoglobin A1c 6.3 H (4.5-5.6) % Troponin I High Sens 32.2 H (0-20) pg/ml B-Natriuretic Peptide (0-100) pg/ml Urine Protein (Negative) Urine Glucose (UA) (Negative)
[2024-10-29] MEDS: LORATADINE 10 MG TAB PO SCH (12:16)
[2024-10-29] MEDS: guaiFENesin 600 MG TABCR PO ONE (12:16)
--- NOTE | 2024-10-29 12:48 | Cardiology Consultation ---
Date of Consultation October 29, 2024 Assessment & Plan (1) Atypical chest pain: (2) SOB (shortness of breath): The patient's EKG is suggestive of chronic coronary disease without acute ischemia. Echocardiogram was technically limited but without definite regional wall motion abnormality and ejection fraction was normal with only grade 1 diastolic dysfunction. He does not examine as if he is volume overloaded. proBNP screen only minimally elevated 1-2 PG per mL. Patient noted to have a mild elevation in troponin but with flat trend. At present recommend transitioning from IV furosemide back to his oral Bumex, next dose due tomorrow. Will proceed with a Lexiscan nuclear stress test. Consider proceed with a full viral respiratory panel and an empiric course of prednisone. Symptoms may be a side effect of Brilinta. Per description his most recent coronary stent was 2 years ago and he has been on this medication in the interim. An option may be to discontinue the Brilinta and transition to clopidogrel, but would avoid doing this until we have the stress test data. Case discussed with Dr Cm for the purpose of coordination of care. History of Present Illness Attending Physician: Seble Cm MD History of Present Illness Mr Concepcion is a 68 year old female seen in cardiology consultation per the request of Dr Tse for the evaluation of shortness of breath. Patient describes concerns of progressive shortness of breath, cough and left- sided chest discomfort. He states that this has been an issue for the last few weeks. The chest symptoms typically occur at rest. He describes a history of coronary heart disease and believes that he has a total of 8 coronary stents. The last of which was placed within the [facility] in [place] approximately 2 years ago. The details of his coronary anatomy are not available. Allergies Allergy/AdvReac Type Severity Reaction Status Date / Time No Known Allergies Allergy Unverified 10/29/24 00:27 Home Medications Medication Instructions Recorded Confirmed Type aspirin 81 mg tablet,delayed 81 mg PO DAILY 10/28/24 10/28/24 History release atorvastatin 80 mg tablet 80 mg PO DAILY 10/28/24 10/28/24 History bumetanide 1 mg tablet 1 mg PO BID 10/28/24 10/28/24 History carvedilol 3.125 mg tablet (Coreg) 3.125 mg PO BID 10/28/24 10/28/24 History cholecalciferol (vitamin D3) 25 25 mcg PO DAILY 10/28/24 10/28/24 History mcg (1,000 unit) capsule (Vitamin D3) insulin regular human 100 unit/mL 1 sliding scale dose subcut 10/28/24 10/28/24 History (3 mL) subcutaneous pen (Novolin R USEASDIRECTD FlexPen) levothyroxine 100 mcg tablet 100 mcg PO DAILY 10/28/24 10/28/24 History lisinopril 30 mg tablet 30 mg PO DAILY 10/28/24 10/28/24 History ticagrelor 90 mg tablet (Brilinta) 90 mg PO BID 10/28/24 10/28/24 History isosorbide mononitrate 30 mg 15 mg PO DAILY 10/29/24 10/29/24 History tablet,extended release 24 hr Patient History Social History Smoking Status: Never smoker Second Hand Exposure: No; Do You Dip or Chew Tobacco: No; Hx Alcohol Use: No Hx Substance Use: No Preferred Language: Sinhala Communication Ability: Effective Clipper Operator Required: No Beliefs That Will Affect Care: None Current Living Situation: Other Current Living Situation Comment: [facility] Other Information That Helps Us Care for You: No Feels Safe at Home: Yes Safety Concerns: Feels Safe At This Time Assistive Devices: CPAP Review of Systems Review of Systems: All systems reviewed & are unremarkable except as noted in HPI & below Physical Exam Physical Exam: General: no acute distress and stated age Eyes: conjunctiva are pink and non-injected, sclera clear Neck: normal jugular venous pulse, no hepatojugular reflux Chest: normal shape and normal respiratory effort Lungs: clear to auscultation and percussion Cardiac Exam: - regular heart sounds, no murmurs, rubs, or gallops, no jugular venous distention Abdomen: abdomen soft, non-tender, no abnormal masses and no hepatosplenomegaly Musculoskeletal: no gait disturbance, no weakness Extremities: no edema and no cyanosis Neuro:awake, conversant, follows commands, no focal motor deficits Psych: appropriate affect and insight. Results & Data Vital Signs (Past 12 Hours) Vital Signs Temp Pulse Pulse Resp BP Pulse Ox Pulse Ox 10/29/24 10:56 36.8 C 57 L 18 104/66 93 10/29/24 07:05 36.8 C 54 L 18 159/96 H 94 10/29/24 06:32 36.4 C L 52 L 20 126/79 96 10/29/24 03:46 51 L 22 98 10/29/24 01:38 10/29/24 01:11 74 19 94 10/29/24 01:00 55 L 10/29/24 00:55 36.9 C 54 L 20 146/86 H 97 10/29/24 00:51 94 O2 Del Method O2 Del Method FiO2 10/29/24 10:56 Room Air 10/29/24 07:05 Room Air 10/29/24 06:32 Room Air 10/29/24 03:46 10/29/24 01:38 CPAP 10/29/24 01:11 21 10/29/24 01:00 10/29/24 00:55 Room Air 10/29/24 00:51 Room Air Laboratory Results Cardiac Enzymes 10/28/24 10/28/24 10/29/24 Range/Units 19:48 21:00 05:26 AST TNP 18 Troponin I High Sens 28.3 H 30.9 H 32.2 H (0-20) pg/ml B-Natriuretic Peptide 102 H (0-100) pg/ml 10/29/24 Range/Units 10:45 AST Troponin I High Sens 30.6 H (0-20) pg/ml B-Natriuretic Peptide (0-100) pg/ml Coagulation 10/28/24 Range/Units 19:48 B-Natriuretic Peptide 102 H (0-100) pg/ml CBC 10/28/24 10/29/24 Range/Units 19:48 05:26 WBC 10.31 11.23 H (4.8-10.8) K/ul RBC 4.28 L 4.47 L (4.70-6.10) M/uL Hgb 14.0 14.5 (14.0-18.0) g/dl Hct 38.5 L 40.2 L (42.0-52.0) % Plt Count 221 231 (130-400) K/uL Neut # (Auto) 6.18 7.03 H (1.40-6.50) K/uL Lymph # (Auto) 2.48 2.61 (1.20-3.40) K/uL [place] # (Auto) 0.92 H 0.91 H (0.11-0.59) K/uL Eos # (Auto) 0.59 H 0.54 H (0.00-0.50) K/uL Baso # (Auto) 0.10 0.09 (0.00-0.20) K/uL Comprehensive Metabolic Panel 10/28/24 10/28/24 10/29/24 Range/Units 19:48 21:00 05:26 Sodium 137 139 (136-145) mmol/L Potassium TNP 4.0 3.7 Chloride 105 105 (98-107) mmol/L Carbon Dioxide 24 27 (21-32) mmol/L BUN 38 H 36 H (6-23) mg/dl Creatinine 1.72 H 1.72 H (0.6-1.4) mg/dl Glucose 164 H 116 H (70-99(Fasting)) mg/dl Calcium 9.6 9.4 (8.6-10.3) mg/dl AST TNP 18 ALT 23 (7-52) U/L Alkaline Phosphatase 92 (34-104) U/L Total Protein 8.1 (6.0-8.3) gm/dl Albumin 4.4 (3.4-5.0) gm/dl Intake and Output 10/28/24 10/29/24 10/29/24 22:59 06:59 14:59 Output Total 275 / 275 700 / 700 Balance -275 / -275 -700 / -700 Output: Urine 275 / 275 700 / 700 Other: Other Intake Source npo Weight 97.9 kg 95.1 kg Weight Measurement Method Built in [facility] Built in [facility] Diagnostic Findings EKG was performed at 10/28/2024 at 1940 and interpret independently: Sinus rhythm at 61 bpm with age-indeterminate anteroseptal infarct noted, Q waves in leads V1-V3. No acute repolarization abnormalities otherwise noted. Repeat EKG performed 10/29/2024 at 5:42 AM and reviewed independently relatively unchanged compared to the previous. With noted T wave inversion in lead aVL which is slightly more prominent. Transthoracic echocardiogram performed 10/29/2024: Mild concentric left ventricular perjury, normal LVEF, 55 to 60%, right ventricle chamber size and systolic function normal. The left atrium is mildly dilated Grade 1 diastolic dysfunction. Findings are not suggestive of pulmonary hypertension
[2024-10-29] MEDS: predniSONE 20 MG TAB PO SCH (13:55)
--- NOTE | 2024-10-29 14:52 | Electrocardiogram Report ---
Test Reason : Blood Pressure : */* mmHG Vent. Rate : 61 BPM Atrial Rate : 61 BPM P-R Int : 180 ms QRS Dur : 86 ms QT Int : 416 ms P-R-T Axes : 49 -28 66 degrees QTcB Int : 418 ms Normal sinus rhythm with sinus arrhythmia Anteroseptal infarct , age undetermined Abnormal ECG No previous ECGs available Confirmed by Khang August ([id number]) on 10/29/2024 2:52:23 PM Referred By: Confirmed By: Khang August
[2024-10-29 15:12] LABS: Adenovirus PCR Not Detected (NotDetected); Bordetella parapertussis PCR Not Detected (NotDetected); Bordetella pertussis PCR Not Detected (NotDetected); Chlamydia pneumoniae PCR Not Detected (NotDetected); Coronavirus 229E PCR Not Detected (NotDetected); Coronavirus CoV-2 (COVID19)PCR Not Detected (NotDetected); Coronavirus HKU1 PCR Not Detected (NotDetected); Coronavirus NL63 PCR Not Detected (NotDetected); Coronavirus OC43PCR Not Detected (NotDetected); Human Metapneumovirus PCR Not Detected (NotDetected); Influenza A PCR Not Detected (NotDetected); Influenza B PCR Not Detected (NotDetected); Mycoplasma pneumoniae PCR Not Detected (NotDetected); Parainfluenza Virus 1 PCR Not Detected (NotDetected); Parainfluenza Virus 2 PCR Not Detected (NotDetected); Parainfluenza Virus 3 PCR Not Detected (NotDetected); Parainfluenza Virus 4 PCR Not Detected (NotDetected); Respiratory Syncytial VirusPCR Not Detected (NotDetected); Rhinovirus/Enterovirus PCR Not Detected (NotDetected)
--- NOTE | 2024-10-29 15:27 | Electrocardiogram Report ---
Test Reason : Blood Pressure : */* mmHG Vent. Rate : 52 BPM Atrial Rate : 52 BPM P-R Int : 194 ms QRS Dur : 90 ms QT Int : 448 ms P-R-T Axes : 38 -33 64 degrees QTcB Int : 416 ms Sinus bradycardia Left axis deviation Septal infarct (cited on or before 28-Oct-2024) Abnormal ECG When compared with ECG of 28-Oct-2024 19:40, (unconfirmed) Questionable change in initial forces of Anterior leads Nonspecific T wave abnormality now evident in Inferior leads T wave inversion more evident in Lateral leads Confirmed by Khang August ([id number]) on 10/29/2024 3:27:10 PM Referred By: Samantha POOL Confirmed By: Khang August
[2024-10-29] MEDS: guaiFENesin 600 MG TABCR PO SCH (20:24)
[2024-10-30 07:18] LABS: Hematocrit (blood only) 39.3 % (42.0-52.0); Hemoglobin 14.3 g/dl (14.0-18.0); Mean Corpuscular Hemoglobin 32.9 pg (25.0-34.0); Mean Corpuscular Hgb Conc 36.4 g/dL (32.0-36.0); Mean Corpuscular Volume 90.3 fL (80.0-100.0); Mean Platelet Volume 10.9 fL (9.4-12.4); Platelet Count 240 K/uL (130-400); RDW Coefficient of Variation 12.6 % (11.5-14.5); RDW Standard Deviation 41.3 fL (36.4-46.3); Red Blood Count 4.35 M/uL (4.70-6.10); White Blood Count 12.21 K/ul (4.8-10.8)
[2024-10-30 07:37] LABS: BUN Creatinine Ratio 24.9 (10-20); Calcium 9.2 mg/dl (8.6-10.3); Creatinine Clr Calc Pharmacy 40.9 ml/min; Magnesium 2.2 mg/dl (1.7-2.4); Phosphorus 4.3 mg/dl (2.5-4.9); Potassium 3.7 mmol/L (3.5-5.1)
[2024-10-30] MEDS: BUMETANIDE 1 MG TAB PO SCH (08:41)
--- NOTE | 2024-10-30 11:02 | Hospitalist Progress Note ---
Date of Service October 30, 2024 Assessment & Plan (1) SOB (shortness of breath): Plan: 68-year-old male with past med history significant for hypertension, sleep apnea, CAD status post multiple stents as per patient, congestive heart failure, history of CVA, diabetes, hyperlipidemia, hypertension, chronic kidney disease, hypothyroidism, cataracts, comes from intermediate with shortness of breath. Patient says since last 2 to 3 weeks is having cough bringing up whitish to yellowish phlegm and progressively getting shortness of breath . D-dimer negative BNP [address] chest did not show any acute abnormalities. Based on history, patient may have Upper Respiratory Infection Rep panel negative Continue antitussive and supportive care Prednisone 40mg daily x 5 days Mildly elevated troponin likely due to demand ischemia Cannot rule out ACS TTE noted mild conc LVH, EF 55-60%, mild dil LA, Grade I DD Patient does not appear volume overloaded on exam. Continue home bumex Cardiology planning for stress test today Will follow up result History of CAD status post stents as per patient Continue aspirin, Brilinta, statin and beta-ekta and Imdur Hypertension History of CHF as per records Continue lisinopril, coreg Diuretics as above History of CVA On aspirin and Brilinta and statin Hyperlipidemia On statin Possible CKD We do not have baseline creatinine Presents with creatinine of 1.7 Cr is 1.73 this AM Diabetes Sliding scale Will monitor HbA1c 6.3 Hypothyroidism On Synthyroid DVT prophylaxis Heparin subcu Disposition Telemetry Full code I spent a total of 50 minutes coordinating, documenting and providing care for this patient excluding time spent in performance of separately billed services Admission and Anticipated Discharge Date Admission Date: October 28, 2024 Subjective Patient seen and examined Reports cough and chest tightness are improved No chest pain this AM Denied other complaints Physical Exam Constitutional: + well hydrated and + obese; no acute di stress Eyes: PERRL, conjunctivae normal, anicteric sclerae ENMT: external ear and nose normal, oropharynx normal Respiratory: normal respiratory effort, lungs clear to auscultation Cardiovascular: Rate/Rhythm: regular rhythm and + bradycardic Gastrointestinal (Abdomen): normal bowel sounds, soft, nontender, no hepatosplenomegaly Musculoskeletal: No pedal edema Neurologic: PERRL, EOMI, accommodation nl, no face palsy, no dysarthria Psychiatric: A+Ox3, euthymic affect Results & Data Results & Data Vital Signs (Past 12 Hours) Vital Signs Temp Pulse Pulse Resp BP BP Pulse Ox 10/30/24 07:24 36.5 C 50 L 19 178/96 H 97 10/30/24 07:11 36.9 C 89 20 103/71 92 10/30/24 03:50 36.9 C 56 L 19 150/85 H 94 10/29/24 23:08 55 L 10/29/24 23:03 37.0 C 79 18 154/85 H 93 O2 Del Method 10/30/24 07:24 Room Air 10/30/24 07:11 Room Air 10/30/24 03:50 Room Air 10/29/24 23:08 10/29/24 23:03 Room Air Laboratory Results Abnormal lab results 10/29/24 10/29/24 10/29/24 Range/Units 10:45 11:34 17:09 WBC (4.8-10.8) K/ul RBC (4.70-6.10) M/uL Hct (42.0-52.0) % MCHC (32.0-36.0) g/dL BUN (6-23) mg/dl Creatinine (0.6-1.4) mg/dl BUN/Creatinine Ratio (10-20) Glucose (70-99(Fasting)) mg/dl POC Glucose 128 H (70-99) mg/dl Troponin I High Sens 30.6 H 30.5 H (0-20) pg/ml 10/29/24 10/29/24 10/30/24 Range/Units 18:18 19:37 00:22 WBC (4.8-10.8) K/ul RBC (4.70-6.10) M/uL Hct (42.0-52.0) % MCHC (32.0-36.0) g/dL BUN (6-23) mg/dl Creatinine (0.6-1.4) mg/dl BUN/Creatinine Ratio (10-20) Glucose (70-99(Fasting)) mg/dl POC Glucose 214 H 163 H 214 H (70-99) mg/dl Troponin I High Sens (0-20) pg/ml 10/30/24 10/30/24 Range/Units 05:38 06:45 WBC 12.21 H (4.8-10.8) K/ul RBC 4.35 L (4.70-6.10) M/uL Hct 39.3 L (42.0-52.0) % MCHC 36.4 H (32.0-36.0) g/dL BUN 43 H (6-23) mg/dl Creatinine 1.73 H (0.6-1.4) mg/dl BUN/Creatinine Ratio 24.9 H (10-20) Glucose 121 H (70-99(Fasting)) mg/dl POC Glucose 149 H (70-99) mg/dl Troponin I High Sens (0-20) pg/ml
--- NOTE | 2024-10-30 11:06 | Cardiology Progress Note ---
Date of Service October 30, 2024 Assessment & Plan (1) Atypical chest pain: (2) SOB (shortness of breath): Plan: Continue outpatient medications including oral bumex. BP elevated on most recent measurements, but stable prior. Will proceed with a Lexiscan nuclear stress test. Viral respiratory panel is negative. Question if oral prednisone is what has improved patient's symptoms. Symptoms may be a side effect of Brilinta. Per description his most recent coronary stent was 2 years ago and he has been on this medication in the interim. An option may be to discontinue the Brilinta and transition to clopidogrel, but would avoid doing this until we have the stress test data. Admission and Anticipated Discharge Date Admission Date: October 28, 2024 Subjective Patient seen in follow up. Notes improvement. Notes breathing is "less tight" . Denies chest pain. Telemetry reveals SB in the 40-50s. Physical Exam Physical Exam: General: no acute distress and stated age Eyes: conjunctiva are pink and non-injected, sclera clear Neck: normal jugular venous pulse, no hepatojugular reflux Chest: normal shape and normal respiratory effort Lungs: clear to auscultation and percussion Cardiac Exam: - regular heart sounds, no murmurs, rubs, or gallops, no jugular venous distention Abdomen: abdomen soft, non-tender, no abnormal masses and no hepatosplenomegaly Musculoskeletal: no gait disturbance, no weakness Extremities: no edema and no cyanosis Neuro:awake, conversant, follows commands, no focal motor deficits Psych: appropriate affect and insight. Results & Data Vital Signs (Past 12 Hours) Vital Signs Temp Pulse Pulse Resp BP BP Pulse Ox 10/30/24 07:24 36.5 C 50 L 19 178/96 H 97 10/30/24 07:11 36.9 C 89 20 103/71 92 10/30/24 03:50 36.9 C 56 L 19 150/85 H 94 10/29/24 23:08 55 L 10/29/24 23:03 37.0 C 79 18 154/85 H 93 O2 Del Method 10/30/24 07:24 Room Air 10/30/24 07:11 Room Air 10/30/24 03:50 Room Air 10/29/24 23:08 10/29/24 23:03 Room Air Laboratory Results Cardiac Enzymes 10/29/24 10/29/24 Range/Units 10:45 17:09 Troponin I High Sens 30.6 H 30.5 H (0-20) pg/ml CBC 10/30/24 Range/Units 06:45 WBC 12.21 H (4.8-10.8) K/ul RBC 4.35 L (4.70-6.10) M/uL Hgb 14.3 (14.0-18.0) g/dl Hct 39.3 L (42.0-52.0) % Plt Count 240 (130-400) K/uL Comprehensive Metabolic Panel 10/30/24 Range/Units 06:45 Sodium 137 (136-145) mmol/L Potassium 3.7 (3.5-5.1) mmol/L Chloride 103 (98-107) mmol/L Carbon Dioxide 24 (21-32) mmol/L BUN 43 H (6-23) mg/dl Creatinine 1.73 H (0.6-1.4) mg/dl Glucose 121 H (70-99(Fasting)) mg/dl Calcium 9.2 (8.6-10.3) mg/dl Intake and Output 10/29/24 10/30/24 10/30/24 22:59 06:59 14:59 Intake Total 400 / 400 Output Total 400 / 1400 150 / 150 Balance 0 / -1000 -150 / -150 Intake: Oral 400 / 400 Output: Urine 400 / 1400 150 / 150 Other: Other Intake Source npo Weight 81 kg Weight Measurement Method Built in [facility] Diagnostic Findings EKG performed 10/30/24: SB at 57 bpm, first degree AV block, septal infarct pattern in V1 and V2 . No acute repolarization abnormalities.
--- NOTE | 2024-10-30 13:17 | Electrocardiogram Report ---
Test Reason : Blood Pressure : */* mmHG Vent. Rate : 57 BPM Atrial Rate : 57 BPM P-R Int : 208 ms QRS Dur : 98 ms QT Int : 448 ms P-R-T Axes : 48 -29 92 degrees QTcB Int : 436 ms Sinus bradycardia Septal infarct (cited on or before 28-Oct-2024) Abnormal ECG When compared with ECG of 29-Oct-2024 05:42, Nonspecific T wave abnormality no longer evident in Inferior leads Confirmed by Khang August ([id number]) on 10/30/2024 1:17:06 PM Referred By: Samantha SCI Confirmed By: Khang August
[2024-10-30] MEDS: REGADENOSON 0.4 MG/5 ML SYR IV ONE (16:20)
--- NOTE | 2024-10-30 16:29 | Myocardial Perfusion Study ---
Date of Service October 30, 2024 Myocardial Perfusion Study [facility] Myocardial Perfusion Study Report Procedure: 1. Myocardial perfusion study performed in multiple views/images 2. Lexiscan pharmacologic stress ECG Indications: 1. Chest discomfort , history of coronary artery disease Ordering physician: Dr Mcbride Procedural details: The stress portion study was supervised in person by the undersigned interpreting physician A two day rest / stress protocol was performed. For the stress portion of the study, Lexiscan 0.4 mg was intravenously administered followed by a saline flush. This was followed by 25.1 mCi of technetium 99m Cardiolite, injected on 10/30/24 at 2:10 pm. 30 minutes following the injection, imaging of the heart was performed in multiple projections. For the rest portion of the study, 21.9 mCi technetium 99m Cardiolite was injected intravenously on10/29/24 at 3:05 pm. 1 hour following the injection, imaging of the heart was performed in the same projections. Lexiscan stress ECG: Resting ECG demonstrated: Sinus bradycardia without significant ST segment changes Maximum heart rate: 83 bpm Maximal, age-predicted heart rate: 56% Resting blood pressure: 143/91 mmHg Hypertension was observed in the post-rest recovery interval with lowest blood pressure of 73/62, patient was symptomatic with noted lightheadedness and diaphoresis. Significant ST changes:Equivocal 1-1.[address] segment depression observed stress EKG that did not meet criteria for ischemia. Arrhythmia: None Symptoms: Diaphoresis, lightheadedness. Findings: Rotating raw imaging demonstrated no significant lung uptake. There is no significant motion artifact. Heart size appeared Normal. Stress perfusion images reveal a small sized anteroseptal perfusion defect of moderate intensity and a moderate-sized apical perfusion defect of severe intensity. Resting images and unchanged small sized anteroseptal perfusion defect with partial reperfusion of the moderate-sized apical perfusion defect. Ejection fraction: 47% Wall motion: Anteroseptal , apical hypokinesis No significant transient ischemic dilation. Impression: The pharmacologic myocardial perfusion imaging study is abnormal with a small sized fixed anteroseptal perfusion defect consistent with scar in this territory. There is a separate moderate-sized partially reversible apical perfusion defect consistent with scar and superimposed ischemia of the apex Equivocal 1-1.[address] segment depression noted in the post-rest images but did not meet criteria for ischemia. The patient developed significant hypotension after administration of adenosine, was blood pressure 73/62 with associated diaphoresis and lightheadedness. Blood pressure improved after the administration of 40 mg of IV caffeine over 3 minutes (administered by the undersigned supervising and interpreting physician). The left ventricular ejection fraction= 47% by the gated SPECT technique (mildly reduced) with noted anteroseptal hypokinesis, apical hypokinesis.
--- NOTE | 2024-10-30 17:17 | Communication Note ---
Date of Service: October 30, 2024 Stress test results reviewed with patient. Notable for septal scar, apical scar with a moderate degree of superimposed ischemia. Discussed options of intensified medication therapy or medication therapy post repeat coronary angiography. Patient signed records release to obtain report of his most recent cardiac catheterization which was performed at [facility] in [place] about 2 years ago as it is difficult to determine what is known as well and he has a complex past interventional history. I am still not convinced that his discomfort is characteristic of angina. For now we will increase isosorbide mononitrate from 15 mg to 30 mg tomorrow.
[2024-10-31 08:13] LABS: Hematocrit (blood only) 42.1 % (42.0-52.0); Hemoglobin 15.2 g/dl (14.0-18.0); Mean Corpuscular Hemoglobin 32.8 pg (25.0-34.0); Mean Corpuscular Hgb Conc 36.1 g/dL (32.0-36.0); Mean Corpuscular Volume 90.7 fL (80.0-100.0); Mean Platelet Volume 10.9 fL (9.4-12.4); Platelet Count 241 K/uL (130-400); RDW Coefficient of Variation 12.9 % (11.5-14.5); RDW Standard Deviation 42.1 fL (36.4-46.3); Red Blood Count 4.64 M/uL (4.70-6.10); White Blood Count 14.17 K/ul (4.8-10.8)
[2024-10-31 08:36] LABS: Calcium 9.2 mg/dl (8.6-10.3); Creatinine Clr Calc Pharmacy 42.2 ml/min; Magnesium 2.3 mg/dl (1.7-2.4); Potassium 3.8 mmol/L (3.5-5.1)
[2024-10-31] MEDS: INSULIN ASPART PER UNIT CHARGE SC SCH (08:45)
--- NOTE | 2024-10-31 08:45 | Cardiology Progress Note ---
Date of Service October 31, 2024 Assessment & Plan (1) Atypical chest pain: (2) SOB (shortness of breath): Plan: Plan 10/31/2024: -Patient is stable from a cardiac perspective, no acute events overnight. -Lexiscan nuclear stress demonstrates Stress perfusion images reveal a small sized fixed anteroseptal perfusion defect of moderate intensity (scar) and a moderate-sized partially reversible apical perfusion defect of severe intensity (scar with superimposed ischemia). -Breathing status continues to improve. -BP well controlled. -Euvolemic on exam -Continue Coreg, Bumex, Atorvastatin, Imdur, Lisinopril, Brilinta, work to maximize medication therapies. Will further discuss case with Dr. Mcbride to determine if further invasive measures should be considered appropriate at this time. Case has been discussed with Dr. Mcbride. Further recommendations regarding plan of care as per his assessment. I spent a total of 30 minutes on the date of service in preparation, delivery, documentation of the care provided to the patient excluding any time spent in the performance of separately billed services. YANDEL Jones [facility] Cardiology [facility] Admission and Anticipated Discharge Date Admission Date: October 28, 2024 Supervising Physician Co-Signing Physician Notes Attending attestation: Case reviewed with the advanced practitioner. I have personally performed a history and physical examination on the patient. I have reviewed the advanced practitioner's documentation on the date of service referenced in note, and I agree with, and take responsibility for the plan of care. Although stress test abnormal, presenting symptoms not suggestive of angina and have improved with prednisone. Requested records from prior cath [facility]. Imdur increased to 30 mg. Continue prednisone. Reassess on 11/01. I spent a total of 20 minutes coordinating, documenting, and providing care for this patient excluding time spent in the performance of separately billed services or time spent by another provider. Mekhi Mcbride, Subjective 10/31/2024: Patient seen and examined in follow up today. Feeling well overall. Patient states that his breathing continues to improve and he had no chest pain symptoms overnight. Denies any palpitations, no near-syncope or syncope and no lower extremity edema. Eating and drinking ok. Guards present at bedside. Labs, vitals, diagnostics, telemetry and documentation reviewed. Telemetry reviewed showing SB with 1st degree AV block. rates 40-50's. One rare bradycardic episode during sleep hours of 38bpm. No acute events overnight. Review of Systems Review of Systems: All systems reviewed & are unremarkable except as noted in HPI & below Physical Exam Constitutional: well developed and well nourished; no acute distress and not ill appearing one arm and one leg shackled to bed as per SCI protocol Neck: normal visual inspection and trachea midline Respiratory: normal respiratory effort; no respiratory distress, no labored breathing and no cough Auscultation: + diminished lung sounds (slightly diminished in bilateral bases ); no crackles, no rales and no rhonchi Cardiovascular: RRR, no murmur, no edema Heart Sounds: normal S1 and normal S2; no murmur Vessels: dorsalis pedis pulses present; no JVD Extremities: no edema Skin: no rashes, warm and dry Psychiatric: A+Ox3, euthymic affect Results & Data Vital Signs (Past 12 Hours) Vital Signs Temp Pulse Pulse Resp BP Pulse Ox O2 Del Method 10/31/24 03:39 36.5 C 80 18 146/83 H 92 Room Air 10/30/24 22:43 62 10/30/24 22:05 67 148/77 H Laboratory Results CBC 10/31/24 Range/Units 07:45 WBC 14.17 H (4.8-10.8) K/ul RBC 4.64 L (4.70-6.10) M/uL Hgb 15.2 (14.0-18.0) g/dl Hct 42.1 (42.0-52.0) % Plt Count 241 (130-400) K/uL Comprehensive Metabolic Panel 10/31/24 Range/Units 07:45 Sodium 137 (136-145) mmol/L Potassium 3.8 (3.5-5.1) mmol/L Chloride 102 (98-107) mmol/L Carbon Dioxide 27 (21-32) mmol/L BUN 47 H (6-23) mg/dl Creatinine 1.68 H (0.6-1.4) mg/dl Glucose 107 H (70-99(Fasting)) mg/dl Calcium 9.2 (8.6-10.3) mg/dl Intake and Output 10/30/24 10/31/24 10/31/24 22:59 06:59 14:59 Output Total 600 / 1950 400 / 1950 Balance -600 / -1950 - Output: Urine 1949 Other: Weight 81.5 kg Weight Measurement Method Built in [facility]
[2024-10-31] MEDS: ISOSORBIDE MONO EXTENDED REL 30 MG TABCR PO SCH (09:42)
--- NOTE | 2024-10-31 10:59 | Hospitalist Progress Note ---
Date of Service October 31, 2024 Assessment & Plan (1) SOB (shortness of breath): Plan: 68-year-old male with past med history significant for hypertension, sleep apnea, CAD status post multiple stents as per patient, congestive heart failure, history of CVA, diabetes, hyperlipidemia, hypertension, chronic kidney disease, hypothyroidism, cataracts, comes from nursing home with shortness of breath. Patient says since last 2 to 3 weeks is having cough bringing up whitish to yellowish phlegm and progressively getting shortness of breath . D-dimer negative BNP [address] elevated [address] chest did not show any acute abnormalities. Based on history, patient may have Upper Respiratory Infection Rep panel negative Continue antitussive and supportive care Prednisone 40mg daily x 5 days History of CAD status post stents as per patient Mildly elevated troponin likely due to demand ischemia Cannot rule out ACS TTE noted mild conc LVH, EF 55-60%, mild dil LA, Grade I DD Had nuclear stress test on 10/30/24. Discussed with Multicultural Manager. Notable for septal scar, apical scar with a moderate degree of superimposed ischemia Cardiology already requested his cardiac cath records Will follow Multicultural Manager's recs Imdur was increased to 30mg daily Continue home bumex Continue aspirin, Brilinta, statin and beta-ekta and Imdur Hypertension History of CHF as per records Continue lisinopril, coreg Diuretics as above History of CVA On aspirin and Brilinta and statin Hyperlipidemia On statin Possible CKD We do not have baseline creatinine Presents with creatinine of 1.7 Cr is 1.68 this AM Diabetes Sliding scale Will monitor HbA1c 6.3 Hypothyroidism On Synthyroid DVT prophylaxis Heparin subcu Disposition Telemetry Full code I spent a total of 50 minutes coordinating, documenting and providing care for this patient excluding time spent in performance of separately billed services Admission and Anticipated Discharge Date Admission Date: October 28, 2024 Subjective Patient seen and examined Reports feeling better. Still has some cough. Reports SOB and chest tightness is improved No chest pain Denied any other complaints Physical Exam Constitutional: + well hydrated and + obese; no acute di stress Eyes: PERRL, conjunctivae normal, anicteric sclerae ENMT: external ear and nose normal, oropharynx normal Respiratory: normal respiratory effort, lungs clear to auscultation Cardiovascular: Rate/Rhythm: regular rhythm and + bradycardic Gastrointestinal (Abdomen): normal bowel sounds, soft, nontender, no hepatosplenomegaly Musculoskeletal: No pedal edema Neurologic: PERRL, EOMI, accommodation nl, no face palsy, no dysarthria Psychiatric: A+Ox3, euthymic affect Results & Data Results & Data Vital Signs (Past 12 Hours) Vital Signs Temp Pulse Resp BP Pulse Ox O2 Del Method 10/31/24 07:33 36.5 C 54 L 18 166/92 H 94 Room Air 10/31/24 03:39 36.5 C 80 18 146/83 H 92 Room Air Laboratory Results Abnormal lab results 10/30/24 10/31/24 10/31/24 Range/Units 22:15 07:34 07:45 WBC 14.17 H (4.8-10.8) K/ul RBC 4.64 L (4.70-6.10) M/uL MCHC 36.1 H (32.0-36.0) g/dL BUN 47 H (6-23) mg/dl Creatinine 1.68 H (0.6-1.4) mg/dl BUN/Creatinine Ratio 28.0 H (10-20) Glucose 107 H (70-99(Fasting)) mg/dl POC Glucose 189 H 111 H (70-99) mg/dl
[2024-10-31] MEDS: ACETAMINOPHEN 325 MG TAB PO PRN (19:43)
[2024-11-01 06:57] LABS: Hematocrit (blood only) 41.2 % (42.0-52.0); Hemoglobin 14.8 g/dl (14.0-18.0); Mean Corpuscular Hemoglobin 32.6 pg (25.0-34.0); Mean Corpuscular Hgb Conc 35.9 g/dL (32.0-36.0); Mean Corpuscular Volume 90.7 fL (80.0-100.0); Mean Platelet Volume 10.9 fL (9.4-12.4); Platelet Count 252 K/uL (130-400); RDW Standard Deviation 42.2 fL (36.4-46.3); Red Blood Count 4.54 M/uL (4.70-6.10); White Blood Count 13.68 K/ul (4.8-10.8)
[2024-11-01 07:22] LABS: Calcium 9.1 mg/dl (8.6-10.3); Creatinine Clr Calc Pharmacy 45.6 ml/min; Potassium 3.7 mmol/L (3.5-5.1)
--- NOTE | 2024-11-01 11:23 | Hospitalist Progress Note ---
Date of Service November 01, 2024 Assessment & Plan (1) SOB (shortness of breath): Plan: 68-year-old male with past med history significant for hypertension, sleep apnea, CAD status post multiple stents as per patient, congestive heart failure, history of CVA, diabetes, hyperlipidemia, hypertension, chronic kidney disease, hypothyroidism, cataracts, comes from assisted with shortness of breath. Patient says since last 2 to 3 weeks is having cough bringing up whitish to yellowish phlegm and progressively getting shortness of breath . D-dimer negative BNP [address] elevated [address] chest did not show any acute abnormalities. Based on history, patient may have Upper Respiratory Infection Rep panel negative Continue antitussive and supportive care Prednisone 40mg daily x 5 days History of CAD status post stents as per patient Mildly elevated troponin likely due to demand ischemia Cannot rule out ACS TTE noted mild conc LVH, EF 55-60%, mild dil LA, Grade I DD Had nuclear stress test on 10/30/24. Notable for septal scar, apical scar with a moderate degree of superimposed ischemia Cardiology already requested his cardiac cath records. Awaiting records Will follow [employer] Technician's recs Imdur was increased to 30mg daily Continue home bumex Continue aspirin, Brilinta, statin and beta-ekta and Imdur Hypertension History of CHF as per records Continue lisinopril, coreg Diuretics as above History of CVA On aspirin and Brilinta and statin Hyperlipidemia On statin Possible CKD We do not have baseline creatinine Presents with creatinine of 1.7 Cr is 1.55 this AM Diabetes Sliding scale Will monitor HbA1c 6.3 Hypothyroidism On Synthyroid DVT prophylaxis Heparin subcu Disposition Telemetry Full code I spent a total of 40 minutes coordinating, documenting and providing care for this patient excluding time spent in performance of separately billed services Admission and Anticipated Discharge Date Admission Date: October 28, 2024 Subjective Patient seen and examined Reports cough, SOB, chest tightness are improving Denied any other complaints Physical Exam Constitutional: + well hydrated and + obese; no acute di stress Eyes: PERRL, conjunctivae normal, anicteric sclerae ENMT: external ear and nose normal, oropharynx normal Respiratory: normal respiratory effort, lungs clear to auscultation Cardiovascular: Rate/Rhythm: regular rhythm and + bradycardic Gastrointestinal (Abdomen): normal bowel sounds, soft, nontender, no hepatosplenomegaly Musculoskeletal: No pedal edema Neurologic: PERRL, EOMI, accommodation nl, no face palsy, no dysarthria Psychiatric: A+Ox3, euthymic affect Results & Data Results & Data Vital Signs (Past 12 Hours) Vital Signs Temp Pulse Pulse Resp BP BP Pulse Ox 11/01/24 07:22 45 L 11/01/24 07:20 59 L 130/70 11/01/24 07:08 36.7 C 52 L 16 168/103 H 97 11/01/24 03:30 45 L 25 H 95 11/01/24 03:07 36.7 C 60 20 140/74 96 O2 Del Method FiO2 11/01/24 07:22 11/01/24 07:20 11/01/24 07:08 Room Air 11/01/24 03:30 21 11/01/24 03:07 Room Air Laboratory Results Abnormal lab results 10/31/24 10/31/24 11/01/24 Range/Units 16:01 19:57 06:32 WBC 13.68 H (4.8-10.8) K/ul RBC 4.54 L (4.70-6.10) M/uL Hct 41.2 L (42.0-52.0) % BUN 45 H (6-23) mg/dl Creatinine 1.55 H (0.6-1.4) mg/dl BUN/Creatinine Ratio 29.0 H (10-20) Glucose 110 H (70-99(Fasting)) mg/dl POC Glucose 201 H 222 H (70-99) mg/dl 11/01/24 11/01/24 Range/Units 07:00 11:21 WBC (4.8-10.8) K/ul RBC (4.70-6.10) M/uL Hct (42.0-52.0) % BUN (6-23) mg/dl Creatinine (0.6-1.4) mg/dl BUN/Creatinine Ratio (10-20) Glucose (70-99(Fasting)) mg/dl POC Glucose 115 H 181 H (70-99) mg/dl
--- NOTE | 2024-11-01 12:39 | Cardiology Progress Note ---
Date of Service November 01, 2024 Assessment & Plan (1) Atypical chest pain: (2) SOB (shortness of breath): Plan: Plan 10/31/2024: -Patient is stable from a cardiac perspective, no acute events overnight. -Lexiscan nuclear stress demonstrates Stress perfusion images reveal a small sized fixed anteroseptal perfusion defect of moderate intensity (scar) and a moderate-sized partially reversible apical perfusion defect of severe intensity (scar with superimposed ischemia). -Breathing status continues to improve. -BP well controlled. -Euvolemic on exam -Continue Coreg, Bumex, Atorvastatin, Imdur, Lisinopril, Brilinta, work to maximize medication therapies. Will further discuss case with Dr. Mcbride to determine if further invasive measures should be considered appropriate at this time. 11/01/2024: -Patient remains stable from a cardiac perspective. No acute events overnight. -Lexiscan nuclear stress demonstrates Stress perfusion images reveal a small sized fixed anteroseptal perfusion defect of moderate intensity (scar) and a moderate-sized partially reversible apical perfusion defect of severe intensity (scar with superimposed ischemia). -Breathing status continues to improve with use of prednisone which despite having an abnormal stress test, his presenting symptoms are not suggestive of angina being that he responded to the prednisone. -BP well controlled. -Euvolemic on exam -Continue Coreg, Bumex, Atorvastatin, Imdur, Lisinopril, Brilinta, work to maximize medication therapies. Will further discuss case with Dr. Mcbride to determine if further invasive measures should be considered appropriate at this time. Case has been discussed with Dr. Mcbride. Further recommendations regarding plan of care as per his assessment. I spent a total of 30 minutes on the date of service in preparation, delivery, documentation of the care provided to the patient excluding any time spent in the performance of separately billed services. YANDEL Jones [facility] Admission and Anticipated Discharge Date Admission Date: October 28, 2024 Supervising Physician Co-Signing Physician Notes Attending attestation: Case reviewed with the advanced practitioner. I have personally performed a history and physical examination on the patient. I have reviewed the advanced practitioner's documentation on the date of service referenced in note, and I agree with, and take responsibility for the plan of care. Patient feels overall improved compared to when he initially came to the hospital but he is still very concerned that the symptoms that he has been having recently are reminiscent of those that prompted his previous stent. Continue current medications. N.p.o. after midnight for tentative coronary angiography tomorrow. I spent a total of 20 minutes coordinating, documenting, and providing care for this patient excluding time spent in the performance of separately billed services or time spent by another provider. Mekhi Mcbride, Subjective 11/01/2024: Patient seen and examined in follow up today. Feeling well. Offers no acute cardiac concerns. Denies any chest pain, pressure, palpitations, no shortness of breath, PND, pre-syncope, syncope or edema. Labs, vitals, diagnostics, telemetry and documentation reviewed. Telemetry reviewed showing SB with 1st degree AVB. Rates 50-60bpm No acute events overnight Review of Systems Review of Systems: All systems reviewed & are unremarkable except as noted in HPI & below Physical Exam Constitutional: well developed and well nourished; no acute distress and not ill appearing Neck: normal visual inspection and trachea midline Respiratory: normal respiratory effort; no respiratory distress, no labored breathing and no cough Auscultation: + diminished lung sounds (slightly diminished in bilateral bases ); no crackles, no rales and no rhonchi Cardiovascular: RRR, no murmur, no edema Heart Sounds: normal S1 and normal S2; no murmur Vessels: dorsalis pedis pulses present; no JVD Extremities: no edema Skin: no rashes, warm and dry Psychiatric: A+Ox3, euthymic affect Results & Data Vital Signs (Past 12 Hours) Vital Signs Temp Pulse Pulse Resp BP BP Pulse Ox 11/01/24 11:24 36.6 C 62 18 146/86 H 93 11/01/24 07:22 45 L 11/01/24 07:20 59 L 130/70 11/01/24 07:08 36.7 C 52 L 16 168/103 H 97 11/01/24 03:30 45 L 25 H 95 11/01/24 03:07 36.7 C 60 20 140/74 96 O2 Del Method FiO2 11/01/24 11:24 Room Air 11/01/24 07:22 11/01/24 07:20 11/01/24 07:08 Room Air 11/01/24 03:30 21 11/01/24 03:07 Room Air Laboratory Results CBC 11/01/24 Range/Units 06:32 WBC 13.68 H (4.8-10.8) K/ul RBC 4.54 L (4.70-6.10) M/uL Hgb 14.8 (14.0-18.0) g/dl Hct 41.2 L (42.0-52.0) % Plt Count 252 (130-400) K/uL Comprehensive Metabolic Panel 11/01/24 Range/Units 06:32 Sodium 136 (136-145) mmol/L Potassium 3.7 (3.5-5.1) mmol/L Chloride 101 (98-107) mmol/L Carbon Dioxide 24 (21-32) mmol/L BUN 45 H (6-23) mg/dl Creatinine 1.55 H (0.6-1.4) mg/dl Glucose 110 H (70-99(Fasting)) mg/dl Calcium 9.1 (8.6-10.3) mg/dl Intake and Output 10/31/24 11/01/24 11/01/24 22:59 06:59 14:59 Intake Total 300 / 500 480 / 480 Output Total 200 / 1550 800 / 1550 700 / 700 Balance 100 / -1050 -800 / -1050 -220 / -220 Intake: Oral 300 / 500 480 / 480 Output: Urine 200 / 1550 800 / 1550 700 / 700 Other: Weight 81 kg Weight Measurement Method Built in [facility]
[2024-11-02 07:33] LABS: Hematocrit (blood only) 41.6 % (42.0-52.0); Hemoglobin 15.2 g/dl (14.0-18.0); Mean Corpuscular Hgb Conc 36.5 g/dL (32.0-36.0); Mean Corpuscular Volume 90.4 fL (80.0-100.0); Mean Platelet Volume 10.6 fL (9.4-12.4); Platelet Count 235 K/uL (130-400); RDW Coefficient of Variation 13.2 % (11.5-14.5); RDW Standard Deviation 42.5 fL (36.4-46.3); White Blood Count 16.03 K/ul (4.8-10.8)
[2024-11-02 07:52] LABS: BUN Creatinine Ratio 26.8 (10-20); Calcium 9.3 mg/dl (8.6-10.3); Creatinine Clr Calc Pharmacy 44.8 ml/min; Potassium 3.9 mmol/L (3.5-5.1)
--- NOTE | 2024-11-02 09:52 | Hospitalist Progress Note ---
Date of Service November 02, 2024 Assessment & Plan (1) SOB (shortness of breath): Plan: 68-year-old male with past med history significant for hypertension, sleep apnea, CAD status post multiple stents as per patient, congestive heart failure, history of CVA, diabetes, hyperlipidemia, hypertension, chronic kidney disease, hypothyroidism, cataracts, comes from retirement with shortness of breath. D-dimer negative BNP [address] chest did not show any acute abnormalities. Based on history, patient may have Upper Respiratory Infection Rep panel negative Continue antitussive and supportive care Prednisone 40mg daily x 5 days History of CAD status post stents as per patient Mildly elevated troponin likely due to demand ischemia Cannot rule out ACS TTE noted mild conc LVH, EF 55-60%, mild dil LA, Grade I DD Had nuclear stress test on 10/30/24. Notable for septal scar, apical scar with a moderate degree of superimposed ischemia Cardiology already requested his cardiac cath records. Still awaiting records Imdur was increased to 30mg daily Planned for cardiac cath today Continue home bumex Continue aspirin, Brilinta, statin and beta-ekta and Imdur Hypertension History of CHF as per records Continue lisinopril, coreg Diuretics as above History of CVA On aspirin and Brilinta and statin Hyperlipidemia On statin Possible CKD We do not have baseline creatinine Presents with creatinine of 1.7 Cr is 1.57 this AM Diabetes Sliding scale Will monitor HbA1c 6.3 Hypothyroidism On Synthyroid DVT prophylaxis Heparin subcu Disposition Telemetry Full code I spent a total of 45 minutes coordinating, documenting and providing care for this patient excluding time spent in performance of separately billed services Admission and Anticipated Discharge Date Admission Date: October 28, 2024 Subjective Patient seen and examined Reports cough, SOB, chest tightness are improved but still present Tele show sinus say and goes down to 40s overnight Denied any other complaints Physical Exam Constitutional: + well hydrated and + obese; no acute di stress Eyes: PERRL, conjunctivae normal, anicteric sclerae ENMT: external ear and nose normal, oropharynx normal Respiratory: normal respiratory effort, lungs clear to auscultation Cardiovascular: Rate/Rhythm: regular rhythm and + bradycardic Gastrointestinal (Abdomen): normal bowel sounds, soft, nontender, no hepatosplenomegaly Musculoskeletal: No pedal edema Neurologic: PERRL, EOMI, accommodation nl, no face palsy, no dysarthria Psychiatric: A+Ox3, euthymic affect Results & Data Results & Data Vital Signs (Past 12 Hours) Vital Signs Temp Pulse Pulse Resp BP BP Pulse Ox 11/02/24 07:17 36.6 C 57 L 18 152/93 H 95 11/02/24 06:57 48 L 11/02/24 02:51 36.5 C 49 L 16 144/84 H 95 11/01/24 23:44 36.7 C 54 L 13 138/81 96 O2 Del Method 11/02/24 07:17 Room Air 11/02/24 06:57 11/02/24 02:51 Room Air 11/01/24 23:44 Room Air Laboratory Results Abnormal lab results 11/01/24 11/01/24 11/01/24 Range/Units 11:21 16:20 20:23 WBC (4.8-10.8) K/ul RBC (4.70-6.10) M/uL Hct (42.0-52.0) % MCHC (32.0-36.0) g/dL BUN (6-23) mg/dl Creatinine (0.6-1.4) mg/dl BUN/Creatinine Ratio (10-20) Glucose (70-99(Fasting)) mg/dl POC Glucose 181 H 168 H 196 H (70-99) mg/dl 11/02/24 11/02/24 Range/Units 07:11 07:12 WBC 16.03 H (4.8-10.8) K/ul RBC 4.60 L (4.70-6.10) M/uL Hct 41.6 L (42.0-52.0) % MCHC 36.5 H (32.0-36.0) g/dL BUN 42 H (6-23) mg/dl Creatinine 1.57 H (0.6-1.4) mg/dl BUN/Creatinine Ratio 26.8 H (10-20) Glucose 101 H (70-99(Fasting)) mg/dl POC Glucose 103 H (70-99) mg/dl
--- NOTE | 2024-11-02 10:47 | Pre Anesthesia Assessment ---
Date of Service November 02, 2024 Pre Sedation Assessment Vital Signs Temp Pulse Pulse Resp BP BP Pulse Ox 11/02/24 10:32 57 L 17 138/87 97 11/02/24 07:17 36.6 C 57 L 18 152/93 H 95 11/02/24 06:57 48 L 11/02/24 02:51 36.5 C 49 L 16 144/84 H 95 11/01/24 23:44 36.7 C 54 L 13 138/81 96 11/01/24 21:52 65 11/01/24 19:35 36.8 C 57 L 16 159/98 H 95 11/01/24 16:00 63 11/01/24 15:35 36.4 C 55 L 16 130/82 94 11/01/24 11:24 36.6 C 62 18 146/86 H 93 O2 Del Method 11/02/24 10:32 Room Air 11/02/24 07:17 Room Air 11/02/24 06:57 11/02/24 02:51 Room Air 11/01/24 23:44 Room Air 11/01/24 21:52 11/01/24 19:35 Room Air 11/01/24 16:00 11/01/24 15:35 Room Air 11/01/24 11:24 Room Air Cardiovascular RRR, no murmur, no edema Respiratory normal respiratory effort, lungs clear to auscultation Pre-Sedation Airway Assessment Smoking Status: Never smoker Hx Sleep Apnea: No Short, Thick Neck: No Thyromental Distance: > or= 3.5 Finger Breadths Oral Cavity: + WNL Mallampati Class: III ASA: ASA3 NPO Status Date of Last Intake of Fluids: 11/01/24 Time of Last Intake of Fluids: 19:00 Date of Last Intake of Solid Food: 11/01/24 Time of Last Intake of Solid Foods: 19:00 Notes The planned sedation has been discussed with the patient. Informed Consent was obtained. I have identified the patient, determined the appropriateness of sedation and have assessed the patient immediately prior to the procedure. All medicine(s) and interventions are by my order.
[2024-11-02] MEDS: HEPARIN (PORCINE) 1000 UNIT/ML 10 ML (CATH LAB USE ONLY) ONE (11:21)
[2024-11-02] MEDS: LIDOCAINE 1% LOCAL 20 ML VIAL ONE (11:21)
[2024-11-02] MEDS: MIDAZOLAM HCL 1 MG/ML 2ML VIAL ONE (11:21)
[2024-11-02] MEDS: niCARdipine 2,000 MCG/20 ML SYR ONE (11:22)
[2024-11-02] MEDS: fentaNYL citrate PF 100 MCG/2 ML VIAL ONE (11:22)
[2024-11-02] MEDS: OPTIRAY 350 ONE (11:23)
[2024-11-02] MEDS: NITROGLYCERIN/D5W 100MCG/ML 20ML SYR ONE (11:23)
--- NOTE | 2024-11-02 11:40 | Post Anesthesia Assessment ---
Date of Service November 02, 2024 Post Sedation Assessment Vital Signs Temp Pulse Pulse Resp BP BP Pulse Ox 11/02/24 10:32 57 L 17 138/87 97 11/02/24 07:17 36.6 C 57 L 18 152/93 H 95 11/02/24 06:57 48 L 11/02/24 02:51 36.5 C 49 L 16 144/84 H 95 11/01/24 23:44 36.7 C 54 L 13 138/81 96 11/01/24 21:52 65 11/01/24 19:35 36.8 C 57 L 16 159/98 H 95 11/01/24 16:00 63 11/01/24 15:35 36.4 C 55 L 16 130/82 94 O2 Del Method 11/02/24 10:32 Room Air 11/02/24 07:17 Room Air 11/02/24 06:57 11/02/24 02:51 Room Air 11/01/24 23:44 Room Air 11/01/24 21:52 11/01/24 19:35 Room Air 11/01/24 16:00 11/01/24 15:35 Room Air Recovery Score Activity: Moves 4 extremities Respiration: Deep Breath/Cough Circulation: +/-20% PreAnes Value Consciousness: Fully Awake Oxygen Saturation: > 92% On Room Air Discharge Sedation Level of Care: Fast Track Phase II Post Sedation Plan On clinical assessment, the patient appears to have tolerated the sedation without complications. Patient is recovering as anticipated. Patient will continue to be monitored by nursing and may be discharged when sedation discharge criteria are met per below protocol. Upon Completions of procedure up to 15 minutes continue every 5 minute vital signs and the P.A.R. score; then discharge to a Phase I or Fast Track to Phase II per the following guidelines: * Discharge Patient to appropriate Phase II area if PAR is 8 or greater or return to pre- procedure baseline. The post - procedure orders will be as directed. * If PAR score is less than 8 or not return to pre-procedure baseline then patient will follow Phase I monitoring till PAR is reached for Phase II. The Phase I may be done in procedure room or may call to secure a Phase I area. * If naloxone or flumazenil are used for reversal, hold in Phase I for continued monitoring from when last reversal dose was given for a minimum of 60 minutes or longer pending the nurse and/or physician discretion of patient condition before discharge to Phase II. Please call the Sedation Physician to re-evaluate and complete post-note for discharge to Phase II area. Do NOT discharge from procedure sedation or Phase 1 until post- sedation evaluation note is complete by procedure /sedation MD Sedation Discharge Instructions to be given to the patient at discharge to home. [facility] Procedure Codes (Charges) Indication for Procedure Indication for procedure: angina known CAD and stents Sedation/Anesthesia Procedure 1: Sedation/Anesthesia: 36200 Mod Sedation by the same physician;Init15 Min Child Age 5 & Up (Initial 15 minutes, start time 1107) Total Sedation Time (minutes): 18 Procedure 2: Sedation/Anesthesia: 63303 Mod Sedation by the same physician; Ea [id number] Minutes (Additional 3 minutes, end time 1125) Total Sedation Time (minutes): 18
--- NOTE | 2024-11-02 15:48 | Cardiology Progress Note ---
Date of Service November 02, 2024 Assessment & Plan (1) Unstable angina pectoris: Plan: * Abnormal nuclear stress with hypotension (systolic blood pressure down to 74 mmHg) and diaphoresis after receiving regadenoson. * Cardiac catheterization performed 11/02/2024 with findings of multivessel coronary heart disease including 95% mid LAD stenosis with distal LAD noted to be a small vessel with diffuse disease. 80% proximal right coronary stenosis noted. 90% proximal circumflex stenosis noted between 2 previously placed stents. * Patient with history of diabetes, hemoglobin A1c 6.3% * The right coronary artery and circumflex stenoses are amenable to PCI. The LAD stenosis is not amenable to PCI. Recommend transfer to tertiary center for multidisciplinary discussion with regards to CABG versus PCI to the circumflex and RCA and medical management for the remaining stenosis. * Continue aspirin, carvedilol, lisinopril, Imdur, atorvastatin. * Continue chronic Brilinta for now pending decision with regards to CABG. * Case discussed with Dr. Flaquito Daley, personalized living assistant for the inpatient cardiology service at [facility] who accepted the patient in transfer. * I called [facility] and updated the attending physician there. * Catheterization films and transthoracic echo images transferred to [facility] electronically. Admission and Anticipated Discharge Date Admission Date: October 28, 2024 Subjective Patient seen in cardiology follow-up postcardiac catheterization. Patient feeling well without symptoms of chest discomfort or shortness of breath. Tolerated procedure well. Telemetry reveals sinus rhythm ranging from 50 to 70 bpm. Physical Exam Physical Exam: Temp Pulse Resp BP Pulse Ox O2 Del Method FiO2 36.4 C L 73 20 151/83 H 96 Room Air 21 11/02/24 12:10 11/02/24 14:30 11/02/24 14:30 11/02/24 14:30 11/02/24 14:30 11/02/24 14:30 11/01/24 03:30 General: no acute distress and stated age Eyes: conjunctiva are pink and non-injected, sclera clear Neck: normal jugular venous pulse, no hepatojugular reflux Chest: normal shape and normal respiratory effort Lungs: clear to auscultation and percussion Cardiac Exam: - regular heart sounds, no murmurs, rubs, or gallops, no jugular venous distention -Right radial access site clean dry inta ct, radial band remains in place. Abdomen: abdomen soft, non-tender, no abnormal masses and no hepatosplenomegaly Musculoskeletal: no gait disturbance, no weakness Extremities: no edema and no cyanosis Neuro:awake, conversant, follows commands, no focal motor deficits Psych: appropriate affect and insight. Results & Data Laboratory Results CBC 11/02/24 Range/Units 07:11 WBC 16.03 H (4.8-10.8) K/ul RBC 4.60 L (4.70-6.10) M/uL Hgb 15.2 (14.0-18.0) g/dl Hct 41.6 L (42.0-52.0) % Plt Count 235 (130-400) K/uL Comprehensive Metabolic Panel 11/02/24 Range/Units 07:11 Sodium 137 (136-145) mmol/L Potassium 3.9 (3.5-5.1) mmol/L Chloride 101 (98-107) mmol/L Carbon Dioxide 28 (21-32) mmol/L BUN 42 H (6-23) mg/dl Creatinine 1.57 H (0.6-1.4) mg/dl Glucose 101 H (70-99(Fasting)) mg/dl Calcium 9.3 (8.6-10.3) mg/dl Intake and Output 11/02/24 11/02/24 11/02/24 06:59 14:59 22:59 Intake Total 700 / 1180 240 / 480 240 / 480 Output Total 775 / 3200 850 / 1350 500 / 1350 Balance -75 / -2020 -610 / -870 -260 / -870 Intake: Oral 700 / 1180 240 / 480 240 / 480 Output: Urine 775 / 3200 850 / 1350 500 / 1350 Other: Weight 80 kg 80 kg Weight Measurement Method Built in [facility] Patient Weight 11/03/24 06:59 Weight 80 kg
--- NOTE | 2024-11-02 16:39 | Cardiac Catheterization ---
[facility] Data: Acoustical Installer Cardiac Status Clinical evaluation leading to the procedure CAD Presenation: Non STEMI Anginal Classification: CCS IV Heart Failure: NYHA Class: CCS III Cardiogenic Shock within 24 Hours: No Cardiac Arrest within 24 Hours: No Imaging Studies Past 6 Months: Yes Stress Studies Past 6 Months: No Coronary Anatomy Dominant: Right Left Main (% Stenosis): Normal LAD (% Stenosis): Proximal (Stent patent), Mid (Stent patent then 50 to 70%) and Distal (Diffuse severe 90 to 95% scattered) D1 (% Stenosis): Ostial (60 to 70%) and Proximal (Stent patent) Circumflex (% Stenosis): Mid (Stent patent. 70% proximal to the stent and 80 to 90% distal to stent) OM1 (% Stenosis): Normal L PL1 (% Stenosis): Normal RCA (% Stenosis): Proximal (70 to 80%) and Distal (50 to 70% then stent patent) R PDA (% Stenosis): Proximal (80%) R PL1 (% Stenosis): Normal Diagnostic Physicians Name: Mekhi Bains MD, PhD Closure Device Percutaneous Entry Location: Radial Closure Device: Radial Band Recommendations: CABG Cardiac Cath Procedure Full Procedure Date November 02, 2024 Pre-Procedure Diagnosis Pre-Procedure Diagnosis: Non STEMI AUC Score AUC Score: 07 Post-Procedure Diagnosis Post-Procedure Diagnosis: Severe CAD Procedure(s) Performed Procedure(s) Performed: Coronary Angiography Financial Services Intern Mekhi Bains MD, PhD Estimated Blood Loss Estimated Blood Loss: 5 cc Medication(s) Medication(s): Fentanyl, Heparin, Lidocaine 1%, Nicardipine, Nitroglycerin and Versed Summary of Findings Brief description: Patient was brought to the cardiac catheterization suite where he was shaved and prepped in a sterile fashion. Sedated using IV Versed and fentanyl. Soft tissues of the right wrist were anesthetized using 2 mL of 1% Xylocaine. The right radial artery was accessed with a modified Seldinger technique and a 6 Luxembourger radial artery glide sheath was placed. Patient was provided anticoagulation with IV heparin and antispasmodics including nicardipine and nitroglycerin. All catheters were advanced and exchanged over a 0.035 J-tip wire. Left coronary angiography in orthogonal views with a 5 Luxembourger Jayess 4 diagnostic catheter. Right coronary angiography in orthogonal views with a 5 Luxembourger Jayess 4 diagnostic catheter. All diagnostic catheters were removed. Radial artery sheath was removed. Hemostasis was obtained using the TR band. Patient remained hemodynamically stable and asymptomatic. He was returned to the recovery area. This ended the case. Coronary angiography findings: [id number]-[id number] vessel bifurcating into LAD and circumflex. Mild luminal irregularities. SXW-ghjfs-ylgoqge and transapical vessel. Proximally there is a stent which then extends in to the mid segment. At the distal stent edge there is a focal 50 to 70% stenosis. The early distal LAD has 90% focal stenosis and then the vessel has diffuse disease with some lesions as severe as 95%. LAD gives a large branching first diagonal. This has ostial to proximal 60 to 70% stenosis and then previously placed stent which is patent. INr-ktmec-obkhmzv and nondominant. Proximally there is mild luminal irregularities and it gives an atrial branch. Mid segment in the AV groove has a stent. The early portion just before the proximal edge of the stent has 70% stenosis. The stent is patent and then distally beyond the edges and 80 to 90% stenosis. Circumflex continues and then terminates in the posterior lateral branch. RCA-this is large caliber and dominant. Proximal 70 to 80% stenosis. The distal vessel has a 50 to 70% stenosis and then a stent which is patent. Vessel bifurcates into the PLB and PDA. The PLB is large and branching. It has diffuse luminal irregularities. The PDA has a proximal to mid 80% stenosis. Summary: 1. Severe multivessel coronary artery disease. Prior stents remain patent. 2. Recommend evaluation for revascularization by "heart team" at tertiary center. 3. Guideline directed medical therapy for secondary prevention of coronary disease per primary design/animation instructor. Hemodynamics Rest Ao:: 110/75 mmHg Final Ao: 128/65 mmHg LV: Not performed Recommendations Recommendations: CABG Radiation Exposure (mGy) 915 mGy, fluoroscopy time 2.7 minutes Contrast (mls) 90 cc Anesthesia 1 mg Versed, 25 mcg fentanyl IV. Start time 1107, end time 1125 Procedural Complication(s) None Disposition Acoustical Installer Holding/Recovery I attest to the content of the Intraoperative Record and any orders documented therein. Any exceptions are noted below. [facility] Card Cath Procedure Codes Cardiac Catheterization Procedure 1: Cardiovascular Cath Procedures: 20162 Coronaries Moderate Sedation Procedure 1: Sedation/Anesthesia: 99926 Mod Sedation by the same physician;Init15 Min Child Age 5 & Up (Initial 15 minutes, start time 1107) Procedure 2: Sedation/Anesthesia: 28050 Mod Sedation by the same physician; Ea [id number] Minutes (Additional 3 minutes, end time 1125) PG Care Time/CCT Total # of Minutes Spent Total Time Spent with Patient: Total time spent is greater than 50% in coordination of care (as documented) at patient's floor/unit and/or counseling patient:
[2024-11-02] MEDS: METOCLOPRAMIDE HCL INJ 5 MG/ML 2 ML VIAL IV ONE (20:48)
[2024-11-02] MEDS: ONDANSETRON INJ 2 MG/ML 2 ML VIAL IV STA (22:09)
[2024-11-03 07:43] LABS: Hematocrit (blood only) 48.3 % (42.0-52.0); Hemoglobin 17.1 g/dl (14.0-18.0); Mean Corpuscular Hemoglobin 32.4 pg (25.0-34.0); Mean Corpuscular Hgb Conc 35.4 g/dL (32.0-36.0); Mean Corpuscular Volume 91.7 fL (80.0-100.0); Mean Platelet Volume 10.9 fL (9.4-12.4); Platelet Count 298 K/uL (130-400); RDW Coefficient of Variation 13.5 % (11.5-14.5); RDW Standard Deviation 44.3 fL (36.4-46.3); Red Blood Count 5.27 M/uL (4.70-6.10); White Blood Count 18.18 K/ul (4.8-10.8)
[2024-11-03 08:04] VITALS: O2SAT 98
[2024-11-03 08:19] LABS: BUN Creatinine Ratio 23.4 (10-20); Creatinine Clr Calc Pharmacy 23.3 ml/min; Potassium 4.6 mmol/L (3.5-5.1)
--- NOTE | 2024-11-03 09:02 | Communication Note ---
Date of Service: November 03, 2024 Brilinta discontinued pending assessment for CABG versus multivessel PCI.
[2024-11-03] MEDS: SODIUM CHLORIDE 0.9% 1,000 ML IV SCH (10:23)
[2024-11-03] MEDS: ONDANSETRON INJ 2 MG/ML 2 ML VIAL IV PRN (10:51)
[2024-11-03 11:39] VITALS: RESP 16; TEMP 97.5
--- NOTE | 2024-11-03 12:22 | Cardiology Progress Note ---
Date of Service November 03, 2024 Assessment & Plan (1) Unstable angina pectoris: (2) Multi-vessel coronary artery stenosis: (3) Acute on chronic renal insufficiency: (4) Diarrhea: (5) Volume depletion: Plan 68-year-old male with admitted with unstable angina pectoralis. Cardiac catheterization revealing severe multivessel coronary disease. Per review of prior cath report, LAD disease appears to be chronic with new, severe disease involving the right coronary artery and left circumflex. Patient will be transferred to tertiary care center to consider multivessel PCI versus coronary artery bypass grafting. Brilinta placed on hold due to potential need for surgery. Elevated creatinine this a.m. secondary to volume depletion and in setting of diarrhea and vomiting. Elevated creatinine not likely due to contrast induced nephropathy less than 24 hours after cardiac catheterization. Continue to monitor renal function closely as creatinine may continue to rise in the next 24-48 hours. Agree with IV hydration. Antiemetic as per internal medicine. Continue cardiovascular indications including low-dose aspirin, atorvastatin, carvedilol, and isosorbide monohydrate. Hold diuretic therapy and lisinopril at this time. Patient accepted for transfer at [facility] in [place]. I spent a total of 50 minutes on the date of service in preparation, delivery, and documentation of the care provided to this patient, excluding any time spent in the performance of separately billed services. Shaq Lord DO, [facility] Admission and Anticipated Discharge Date Admission Date: October 28, 2024 Subjective 68-year-old male seen examined at the bedside. Reports abdominal discomfort, nausea, and diarrhea overnight. Vomited this a.m. Serum creatinine bumping up from 1.57 to 3.03 this morning. IV hydration with normal saline initiated.Complains of lightheadedness. No chest pain or shortness of breath. Telemetry revealing sinus rhythm in the 70s. Review of Systems Review of Systems: All systems reviewed & are unremarkable except as noted in Subjective Physical Exam Constitutional: well nourished and + ill appearing; no acute distress Respiratory: no respiratory distress, no labored breathing and no retractions Auscultation: no crackles, no rales, no rhonchi and no wheezes Cardiovascular: Rate/Rhythm: regular rate and regular rhythm Heart Sounds: normal S1 and normal S2; no murmur Vessels: radial pulses present; no JVD Extremities: no edema Gastrointestinal (Abdomen): Inspection/Auscultation: abdomen normal to inspection; abdomen not distended Percussion/Palpation: abdomen soft; abdomen nontender and no guarding Neurologic: CN's II-XI intact bilaterally and moves all extremities Results & Data Vital Signs (Past 12 Hours) Vital Signs Temp Pulse Pulse Resp BP Pulse Ox O2 Del Method 11/03/24 11:38 36.4 C L 59 L 16 120/70 Room Air 11/03/24 08:02 36.8 C 68 19 116/66 98 Room Air 11/03/24 08:00 Room Air 11/03/24 07:00 69 11/03/24 02:36 37.0 C 85 20 127/79 93 Room Air Laboratory Results CBC 11/03/24 Range/Units 07:14 WBC 18.18 H (4.8-10.8) K/ul RBC 5.27 (4.70-6.10) M/uL Hgb 17.1 (14.0-18.0) g/dl Hct 48.3 (42.0-52.0) % Plt Count 298 (130-400) K/uL Comprehensive Metabolic Panel 11/03/24 Range/Units 07:14 Sodium 135 L (136-145) mmol/L Potassium 4.6 (3.5-5.1) mmol/L Chloride 98 (98-107) mmol/L Carbon Dioxide 22 (21-32) mmol/L BUN 71 H D (6-23) mg/dl Creatinine 3.03 H D (0.6-1.4) mg/dl Glucose 148 H (70-99(Fasting)) mg/dl Calcium 9.0 (8.6-10.3) mg/dl Intake and Output 11/02/24 11/03/24 11/03/24 22:59 06:59 14:59 Intake Total 390 / 630 Output Total 1075 Balance -686 / -1299 -3 / -1299 - Intake: Oral 390 / 630 Output: Urine 1074 # Bowel Movements Other: Other Intake Source Sips # Unmeasured Voids 2 Weight 81 kg Weight Measurement Method Built in [facility] Diagnostic Findings Coronary angiography films personally reviewed demonstrating multivessel coronary disease. (4) Diarrhea Diarrhea type: unspecified type Qualified Code(s): R19.7 - Diarrhea, unspecified
[2024-11-03 16:01] VITALS: BP 144/84; PULSE 59
--- NOTE | 2024-11-03 16:11 | Discharge Summary ---
Date of Service November 03, 2024 Admission HPI Per Admitting Provider 68-year-old male with past med history significant for hypertension, sleep apnea, CAD status post multiple stents as per patient, congestive heart failure, history of CVA, diabetes, hyperlipidemia, hypertension, chronic kidney disease, hypothyroidism, cataracts, comes from skilled nursing with shortness of breath. Patient says since last 2 to 3 weeks is having cough bringing up whitish to yellowish phlegm and progressively getting shortness of breath . Currently walking short distance making him short of breath. No orthopnea. But in the nighttime he gets up gasping for breath. Complains of some chest soreness probably from his coughing. He feels his lungs are hurting. He thinks he is coughing up fluid. Appetite is okay. Sometimes when he drinks liquids he is coughing more. But swallowing solid food okay. Denies any headache. Sometimes feeling dizzy. Vision is not great in right eye because of cataracts. Currently no runny nose. Has some sore throat. Denies fevers. Currently no nausea. No abdominal pain. Constipated. Denies any blood in the stools or black stools. Micturating okay. Hemodynamics are okay. Patient says he is mostly wheelchair-bound. Past medical history. As mentioned above Past surgical history. Cardiac cath. Hernia repair. Social history. Denies smoking. Denies alcohol use. Denies drug use. Family history. Father had CABG. Admission Exam Per Admitting Provider General-Not in distress Head- atraumatic Eyes- PERRL. ENT- oropharynx clear Neck- supple, no JVD. Lungs- clear to auscultation mild bibasilar crackles, no wheezing Heart- regular rate and rhythm; no murmur, no gallop. Abdomen- normal bowel sounds, soft, nontender, no distension Extremities- trace pretibial edema present, no erythema seen Neuro- alert, oriented PERRL, no facial palsy; no dysarthria; moves extremities Principal Diagnosis Multivessel Coronary Artery Disease Acute on chronic kidney disease Discharge Exam Constitutional + well hydrated and + obese; no acute distress Eyes PERRL, conjunctivae normal, anicteric sclerae ENMT external ear and nose normal, oropharynx normal Respiratory normal respiratory effort, lungs clear to auscultation Cardiovascular Rate/Rhythm: regular rhythm and + bradycardic Gastrointestinal (Abdomen) normal bowel sounds, soft, nontender, no hepatosplenomegaly Musculoskeletal No pedal edema Neurologic PERRL, EOMI, accommodation nl, no face palsy, no dysarthria Psychiatric A+Ox3, euthymic affect Discharge Data Allergies Allergy/AdvReac Type Severity Reaction Status Date / Time No Known Allergies Allergy Unverified 11/02/24 10:35 Consultations 10/28/24 22:25 ED Decision to Admit Stat 10/29/24 08:00 Consult Cardiology Routine 11/03/24 14:56 Burn CD for patient Stat Procedures Performed Operation Date: 11/02/24 12:30 Actual Procedures p Cineradiography w/Routine Exam - Mekhi Baisn MD, PhD p Cath, Coronaries ONLY (no LV) - Mekhi Bains MD, PhD Ordered Studies 10/29/24 00:51 CT chest diagnostic wo con Urgent 11/02/24 CL Cath Imgs for PACS use only Routine 11/02/24 06:48 CL Cath Imgs for PACS use only Routine Hospital Course (1) SOB (shortness of breath): (2) Multi-vessel coronary artery stenosis: (3) Unstable angina pectoris: (4) Atypical chest pain: Plan 68-year-old male with past med history significant for hypertension, sleep apnea, CAD status post multiple stents as per patient, congestive heart failure, history of CVA, diabetes, hyperlipidemia, hypertension, chronic kidney disease, hypothyroidism, cataracts, comes from skilled nursing with shortness of breath. On admission; D-dimer negative BNP [address] chest did not show any acute abnormalities. Patient got supportive care and prednisone for possible URI Due to patient's history of CAD status post stents and elevate trop, patient was evaluated by Cardiology TTE noted mild conc LVH, EF 55-60%, mild dil LA, Grade I DD Had nuclear stress test on 10/30/24. Notable for septal scar, apical scar with a moderate degree of superimposed ischemia His Imdur was increased to 30mg daily Patient had cardiac catheterization on 11/02/24 which was notable for severe multivessel coronary heart disease including 95% mid LAD stenosis with distal LAD noted to be a small vessel with diffuse disease. 80% proximal right coronary stenosis noted. 90% proximal circumflex stenosis noted between 2 previously placed stents. Cardiology recommended transfer to tertiary center for further eval for CABG vs complex PCI His brilinta was held by Cardiology in view of possible cardiac procedure. Patient developed nausea, vomiting and diarrhea overnight Likely Gastroenteritis Labs today notable for MARIA LUISA on CKD today with Cr at 3.03 from 1.57 yesterday Likely due to dehydration plus contrast from cardiac cath Patient was started on IV hydration prior to transfer to [facility]. Continue to monitor at accepting facility and manage accordingly Total Time Total Time Spent Total Time Spent (In Minutes): 45 Total Time Includes: Examination of the Patient, Discharge Planning and Medication Reconciliation Discharge Plan Discharge Items Patient Disposition: Transfer Acute Care Hospital Reason For Visit: Shortness of breath Discharge Diagnosis: Multivessel Coronary artery disease Acute on chronic kidney disease Condition on Discharge: Good Activity: Resume your previous activity Non-emergency contact: Primary Care Provider Call non-emergency contact if: you have any medication questions Follow-up/Referrals: Samantha POOL [Primary Care Provider] - Diet: Heart Healthy Addtl Attending Provider Instructions: Mr Concepcion You came to the hospital complaining of cough, shortness of breath and chest pain. You had a cardiac catheterization which showed multivessel coronary artery disease. You are being transferred [facility] for further evaluation and treatment. Your brilinta is stopped for now until assessment at [facility] Pending Studies at Discharge: No Stand-Alone Forms: My [facility] Skilled Items Patient informed of condition?: Yes DNR: No Discharge Level of Care: Other Communicable Disease: No Discharge Prognosis: Stable Lines: Peripheral IV Urinary Catheter: No Medications and DC Order Prescriptions: Continued atorvastatin 80 mg Tablet 80 mg PO DAILY aspirin 81 mg Tablet,Delayed Release (Dr/Ec) 81 mg PO DAILY carvedilol [Coreg] 3.125 mg Tablet 3.125 mg PO BID Rx Instructions: must administer with a meal/food levothyroxine 100 mcg Tablet 100 mcg PO DAILY lisinopril 30 mg Tablet 30 mg PO DAILY bumetanide 1 mg Tablet 1 mg PO BID cholecalciferol (vitamin D3) [Vitamin D3] 25 mcg (1,000 unit) Capsule 25 mcg PO DAILY Novolin R FlexPen 100 unit/mL (3 mL) Insulin Pen 1 sliding scale dose SUBCUT USEASDIRECTD Rx Instructions: sliding scale Changed isosorbide mononitrate 30 mg Tablet Extended Release 24 Hr 30 mg PO DAILY Qty: 0 0RF Discontinued Brilinta 90 mg Tablet 90 mg PO BID Discharge Orders: Discharge Order (Routine); Ordered 11/03/24 Ordered By: Seble Alberto/Other Patient Handouts: Managing Type 2 Diabetes Admission Data Admit Date/Time: 10/28/24 22:41 Attending Provider: Seble Cm I. Admit Provider: Klever Tse Primary Care Provider: Samantha POOL Other Providers: Mekhi Mcbride; Klever Tse Other Interventions: Discharge Summary Assessment (RN) Last Done: 11/03/24 15:59
== END 2024-11-03 16:00 | disposition short-term general hospital (02) | DRG 287 ==
LOC: ED 19:24 → 2S 22:41
PROC: CLB.CCO (2024-11-02 12:30)